=== PATIENT | female | born 1960 | race Caucasian/White ===

== ENCOUNTER → 2020-01-27 | Outpatient (CLI) | payer SELFPAY | LOC: M LABSMTC 11:12 | PROVIDERS: ATTEND Pediatrics | DX: Z20.828 Contact with and (suspected) exposure to other viral communicable diseases (principal) ==

== ENCOUNTER → 2020-02-05 | Outpatient (REF) | payer BC | LOC: M LAB REF 16:15 | PROVIDERS: ATTEND Nurse Practitioner Adult Health | DX: Z51.81 Encounter for therapeutic drug level monitoring (principal) ==

== ENCOUNTER 2020-03-28 10:39 | Emergency (ER) | payer BC ==
[~2020-03-28] VITALS: Ht 152.4 cm; Wt 68.2 kg
--- OUTSIDE RECORDS SUMMARY | 2020-03-28 10:48 | CCD | Continuity of Care Document ---
Author Author Lab Schedule Pablo Servando Organization Unknown Address [address] [place] [id number] Phone Unavailable Care Team Providers Care School Traffic Guard Name Role Phone Ronda Dupont ANP AUTM [phone] Dorene Reyes AUTO WASHER AUTM [phone] Problems Active Problems Provider Date Migraine CALDERON Gallegos Onset: 04/30/2011 Kidney stone CALDERON Gallegos Onset: 04/30/2011 Hypertensive chronic kidney disease with stage 1 through stage 4 chronic kidney disease, or unspecified chronic kidney disease CALDERON Gallegos Onset: 10/23/2016 Chronic kidney disease stage 3 CALDERON Gallegos Onset: Patient post percutaneous transluminal coronary angioplasty CALDERON Gallegos Onset: 10/23/2016 Coronary artery dissection CALDERON Gallegos Onset: 2016 Social History Type Date Description Comments Sex Unknown ETOH Use Denies alcohol use Tobacco Use Start: Unknown Patient has never smoked Allergies, Adverse Reactions, Alerts Active Allergies Reaction Severity Comments Date Sulfa rash 01/09/2010 Morphine vomiting 01/16/2015 Medications Active Medications SIG Qnty Indications Ordering Provide r Date Calcium + D3 600-200 Tablets 1 by mouth twice a day CALDERON Gallegos 12/18/2019 Irbesartan 300mg Tablets 1 by mouth every day 90tabs CALDERON Gallegos 12/18/2019 Potassium Citrate ER 15Meq (1620 mg) Tablets ER one twice daily 180tabs CALDERON Gallegos 10/17/19 20 Prolia 60mg/ml Soln Prefill Syring e inject under the skin every 6 months 1units CALDERON Gallegos 1 Aspirin 81mg Tablets 1 by mouth every day CALDERON Gallegos 01/26/2017 Propranolol HCL ER 60mg Caps ER 24 HR Take 1 Capsule By Mouth Once Daily 90caps Ronda Kinney [facility] 1 04/20/2011 Lipitor 40mg Tablets 1 by mouth every day Unknown Nitrostat 0.4mg Tablets Sub one under tongue every 5 minutes x 3 as needed for chest discomfort 30tabs Ronda Kinney [facility] Vitamin D-3 1000Unit Capsules 1 by mouth every day Unknown History Medications Urocit-K 15 15Meq (1620 mg) Tablet s ER 1 PO qd Ronda Kinney [facility] 10/17/2019 - Irbesartan 150mg Tablets 1 by mouth every day 90tabs Ronda Kinney [facility] 08/14/2019 - Medications Administered in Office Medication SIG Qnty Indications Ordering Provider Date Therapeutic Injection Injection Nurse Schedule 02/08/2020 Immunization Adminstration,1 Vaccine/Tox oid Injection Ronda Kinney [facility] 12/18/2019 Prolia (denosumab) 60mg,SC injection, ND C#[id number] Injection Ronda Kinney [facility] 07/04/2019 Therapeutic Injection Injection Ronda Kinney [facility] 07/04/2019 Immunization Adminstration,1 Vaccine/Tox oid Injection Ronda Kinney [facility] 12/07/2018 Chemotherpy Admin Subcutaneous/Im Non-Ho rmonal Anti-Neoplastic Injection Ronda Staton, [facility] 04/26/2017 Chemotherpy Admin Subcutaneous/Im Non-Ho rmonal Anti-Neoplastic Injection Ronda Staton, [facility] 08/11/2016 Immunizations CPT Code Status Date Vaccine Lot # [id number] Given 12/18/2019 Influenza Vaccin e Quadrivalent Preser/Antibiotic Free Im Use [id number] 85951 Given 12/07/2018 Influenza Vaccin e Quadrivalent Preser/Antibiotic Free Im Use [id number] 14067 Given 07/18/2015 Pneumovax 23 Q2037 Given 01/04/2014 Fluvirin Virus Vaccine 97808 01 Q2037 Given 12/01/2012 Fluvirin Virus Vaccine 56280 01 91426 Given 02/18/2012 Adacel- Tetanus Diphtheria P ertussis (Age64 & Under) 72132 Given 02/18/2012 Adacel- Tetanus Diphtheria P ertussis (Age64 & Under) Q2037 Given 11/30/2011 Fluvirin Virus Vaccine 31072 Given 09/24/2010 Adacel- Tetanus Diphtheria P ertussis (Age64 & Under) 47168 Given 01/09/2010 Influenza Virus Vaccine Vital Signs Date Vital Result Comment 12/18/2019 11:35am BP Systolic 162 mmHg BP Diastolic 80 mmHg Heart Rate 60 /min Height 60 inches 5'0" Weight 155.00 lb O2 % BldC Oximetry 98 % BMI (Body Mass Index) 30.3 kg/m2 07/04/2019 1:39pm BP Systolic 122 mmHg BP Diastolic 74 mmHg Heart Rate 82 /min Height 60 inches 5'0" Weight 159.00 lb O2 % BldC Oximetry 96 % BMI (Body Mass Index) 31.0 kg/m2 Results Test Acquired Date Facility Test Result H/L Range Note Laboratory test finding 02/05/2020 [facility] [address] [place] [address] [phone] Phosphorus Level 5.1 mg/dL High 2.5-4.9 Basic Metabolic Panel 02/05/2020 [facility] Commercial Photographer: Dr Ger [address]g [place], [place] [id number] [phone] Glucose 105 mg/dL High 74 - 99 1 BUN 20 mg/dL High 7 - 18 Creatinine 1.2 mg/dL 0.6 - 1.3 Sodium 144 mEq/L 136 - 145 Potassium 4.2 mEq/L 3.5 - 5.1 Chloride 104 mEq/L 98 - 107 Carbon Dioxide 26 mEq/L 21 - 32 Calcium 9.3 mg/dL 8.5 - 10.1 GFR 46 mL/min Low >60 GFR 56 mL/min Low >60 2 Laboratory test finding 02/05/2020 [facility] Commercial Photographer: Dr Ger Valdes [place], [place] [id number] [phone] Magnesium 2.0 mg/dL 1.8 - 2.4 Coronavirus 2018 ([facility]) 01/27/2020 [facility] [address] [place] [address] [phone] Coronavirus 2018 ([facility]) <SEE NOTE> 3 Ua Dipstick Only 12/18/2019 [facility] Commercial Photographer: [place] [address] [phone] Urine Color YELLOW Yellow Urine Appearance CLEAR Clear Urine PH 8.5 units 5.0 - 9.0 Urine Specific [place] 1.005 1.005 - 1.030 Urine Leukocytes NEGATIVE Negative Urine Blood NEGATIVE Negative Urine Protein NEGATIVE Negative -Trace Urine Glucose NEGATIVE mg/dL Negative Urine Nitrite NEGATIVE Negative Urine Ketone NEGATIVE mg/dL Negative Urine Bilirubin NEGATIVE Negative Urine Urobilinogen 0.2 mg/dL 0.2 - 1.0 Complete Blood Count 12/18/2019 [facility] [employer] Commercial Photographer: [place] [address] [phone] WBC 8.0 x10*3/UL 4.1 - 10.9 RBC 4.94 x10*6/UL 4.20 - 6.30 Hemoglobin 15.1 g/dL 12.0 - 18.0 Hematocrit 44.2 % 37.0 - 51.0 MCV 89.5 fL 80.0 - 97.0 MCH 30.6 pg 26.0 - 32.0 MCHC 34.1 g/dL 31.0 - 38.0 RDW 13.3 % 11.6 - 13.7 PLT 203 x10*3/UL 140 - 440 MPV 10.2 FL 7.8 - 11.0 Lymph % 31.8 % 10.0 - 58.5 Mid % 7.1 % 1.7 - 9.3 Neut % 61.1 % 37.0 - 92.0 Lymph # 2.5 x10*3/UL 0.6 - 4.1 Mid # 0.6 x10*3/UL 0.1 - 0.6 Neut # 4.9 x10*3/UL 2.0 - 7.8 Comprehensive Chem Profile 12/18/2019 [facility] Commercial Photographer: [place] [address] [phone] Glucose 105 mg/dL High 74 - 99 4 BUN 13 mg/dL 7 - 18 Creatinine 1.3 mg/dL 0.6 - 1.3 Sodium 142 mEq/L 136 - 145 Potassium 4.6 mEq/L 3.5 - 5.1 Chloride 102 mEq/L 98 - 107 Carbon Dioxide 30 mEq/L 21 - 32 Calcium 10.0 mg/dL 8.5 - 10.1 Alk. Phosphatase 57 mg/dL 46 - 116 Total Bilirubin 0.7 mg/dL 0.2 - 1.0 Ast (Sgot) 21 U/L 15 - 37 Alt (SGPT) 24 U/L 12 - 78 Albumin 4.2 g/dL 3.4 - 5.0 Total Protein 7.8 g/dL 6.4 - 8.2 A/G Ratio 1.17 CALC 1.00 - 1.90 GFR 42 mL/min Low >60 GFR 51 mL/min Low >60 5 Lipid Profile 12/18/2019 [facility] Commercial Photographer: [place] [address] [phone] Cholesterol 167 mg/dL 131 - 200 Triglycerides 106 mg/dL 30 - 150 HDL Cholesterol 73 mg/dL High 35 - 60 LDL (Calculated) 73 CALC 50 - 159 Laboratory test finding 12/18/2019 [facility] Commercial Photographer: Dr Ger Valdes [place], [place] [id number] [phone] Thyroid Stimulating Hormone 2.41 uIU/mL 0.3 6 - 3.74 1 100-125 mg/dL PRE-DIABET ES/FASTING >126 mg/dL DIABETES/FASTING 2 CHRONIC KIDNEY DISEASE STAGI NG PER NKF STAGE I & II GFR >= 60 NORMAL TO MILDLY DECREASED STAGE III GFR 30-59 MODERATELY DECREASED STAGE IV GFR 15-29 SEVERELY DECREASED STAGE V GFR <15 VERY LITTLE GFR LEFT ESRD GFR <15 ON TRAVEL MED SURG RN 3 Test: COVID-19 Nasal/Naspharynx Result: NOT DETECTED Reference Units: Not detected Note: Please consider re-collection of a new specimen, if clinically indicated. Note: The COVID-19 assay is under Emergency Use Authorization(EUA) by the U.S. Food and Drug Administration. [facility] is designated as a high complexity laboratory by the Clinical Laboratory Improvement Amendments of 1988(CLIA) and is qualified to perform this test. ASSAY INFORMATION: Real Time RT-PCR or TMA. 4 100-125 mg/dL PRE-DIABET ES/FASTING >126 mg/dL DIABETES/FASTING 5 CHRONIC KIDNEY DISEASE STAGI NG PER NKF STAGE I & II GFR >= 60 NORMAL TO MILDLY DECREASED STAGE III GFR 30-59 MODERATELY DECREASED STAGE IV GFR 15-29 SEVERELY DECREASED STAGE V GFR <15 VERY LITTLE GFR LEFT ESRD GFR <15 ON TRAVEL MED SURG RN Procedures Date Code Description Status 02/08/2020 89236 Therapeutic Injection Completed 04/25/2019 [id number] Mammogram Completed 03/15/2018 [id number] Mammogram Completed 02/14/2018 [id number] Bone Mineral Density Test Comple olivia 03/15/2017 [id number] Mammogram Completed 03/12/2016 [id number] Mammogram Completed 01/13/2016 [id number] Bone Mineral Density Test Comple olivia 02/12/2014 [id number] Mammogram Completed 12/19/2012 [id number] Mammogram Completed 09/14/2011 [id number] Mammogram Completed 05/31/2011 [id number] Bone Mineral Density Test Comple [facility] 12/28/2010 [id number] Colonoscopy Completed 08/25/2010 [id number] Mammogram Completed 11/06/2008 [id number] Mammogram Completed Medical Devices Description No Information Available Encounters Type Date Location Provider Dx Diagnosis Office Visit 12/18/2019 11:00a [facility] Ronda Chow Pi ne, PIANO ASSEMBLER Z00.00 Encntr for general adult medical exam w/ o abnormal findings I12.9 Hypertensive chronic kidney disease w stg 1-4/unsp chr kdny N18.31 Chronic kidney disease, stag e 3a E04.2 Nontoxic multinodular goiter M85.80 Oth disrd of bone density an d structure, unspecified site E66.09 Other obesity due to excess calories Z68.30 Body mass index [BMI]30.0-30 .9, adult Z87.442 Personal history of urinary calculi Z98.61 Coronary angioplasty status Z23 Encounter for immunization E78.00 Pure hypercholesterolemia, u nspecified Assessments Date Code Description Provider 02/05/2020 I12.9 Hypertensive chronic kidney disease with stage 1 through stage 4 chronic kidney disease, or unspecified chronic kidney disease JESSICA GallegosP 02/05/2020 I12.9 Hypertensive chronic kidney disease with stage 1 through stage 4 chronic kidney disease, or unspecified chronic kidney disease Lab Schedule 02/05/2020 N18.31 Chronic kidney disease, stage 3a Ronda Kinney [facility] 02/05/2020 N18.31 Chronic kidney disease, stage 3a Lab Schedule 02/05/2020 Z51.81 Encounter for therapeutic drug l evel monitoring Ronda Kinney [facility] 02/05/2020 Z51.81 Encounter for therapeutic drug l evel monitoring Lab Schedule 12/18/2019 Z00.00 Encounter for genera l adult medical examination without abnormal findings Ronda Kinney [facility] 12/18/2019 I12.9 Hypertensive chronic kidney disease with stage 1 through stage 4 chronic kidney disease, or unspecified chronic kidney disease JESSICA GallegosP 12/18/2019 N18.31 Chronic kidney disease, stage 3a Ronda Kinney [facility] 12/18/2019 E04.2 Nontoxic multinodular goiter Ronda Kinney [facility] 12/18/2019 M85.80 Other specified disorders of bon e density and structure, uns Ronda Kinney [facility] 12/18/2019 E66.09 Other obesity due to excess tigist leo Ronda Kinney [facility] 12/18/2019 Z68.30 Body mass index [BMI]30.0-30.9, adult Ronda Kinney [facility] 12/18/2019 Z87.442 Personal history of urinary calc tanisha Ronda Kinney [facility] 12/18/2019 Z98.61 Coronary angioplasty status CALDERON Gallegos 12/18/2019 Z23 Encounter for immunization Ronda Harris [facility] 12/18/2019 E78.00 Pure hypercholesterolemia, unspe cified CALDERON Gallegos Plan of Treatment Future Appointment(s):* 12/18/2020 10:40 am - CALDERON Gallegos at [facility] * 04/22/2020 2:20 pm - CALDERON Gallegos at [facility] 12/18/2019 - CALDERON Gallegos* Z00.00 Encounter for general adult medical examination without abnormal findings * I12.9 Hypertensive chronic kidney disease with stage 1 through stage 4 chronic kidney disease, or unspecified chronic kidney disease* Comments:* blood pressure is suboptimally controlled here and at home.Will increase Irbesartan to 300mg daily.Recheck BMP in about one month.Continue Propranolol. * Referral:* [facility], * N18.31 Chronic kidney disease, stage 3a* Comments:* BMP pending. * Referral:* [facility], * E04.2 Nontoxic multinodular goiter* Comments:* TSH pending. Will arrange f/u ultrasound of right thyroid nodule. * M85.80 Other specified disorders of bone density and structure, uns* Comments: * will continue with Prolia. Will check BMP, phosphorus and magnesium before next injection. * E66.09 Other obesity due to excess calories* Comments:* Diet and exercise discussed. She has lost 4 pounds in the interval. * Z68.30 Body mass index [BMI]30.0-30.9, adult * Z87.442 Personal history of urinary calculi* Comments:* continues on Potassium Citrate to prevent recurrence. * Z98.61 Coronary angioplasty status* Comments:* asymptomatic on Aspirin, Betablocker, statin and ARB. * Z23 Encounter for immunization * E78.00 Pure hypercholesterolemia, unspecified * All * New Medication:* Calcium + D3 600-200 - 1 by mouth twice a day * Irbesartan 300 mg - 1 by mouth every day Functional Status Description No Information Available Mental Status Description No Information Available Referrals Refer to Reason for Referral Status Appt Date [facility] CONSULT FOR [facility] HYPERTENSION Sent [address] [place] [address] [phone]
--- OUTSIDE RECORDS SUMMARY | 2020-03-28 10:48 | CCD | Continuity of Care Document ---
Author Author Nurse Pablo Lott Organization Unknown Address [address] [facility] [address] [place] [address] Phone [phone] Care Team Providers Care Import Manager Name Role Phone Ronda Dupont ANP AUTM [phone] Dorene Reeys MONEY ROOM TELLER AUTM [phone] Problems Active Problems Provider Date Migraine CALDERON [...] under the skin every 6 months 1units CADLERON Gallegos 1 Aspirin 81mg Tablets 1 by mouth every day CALDERON Gallegos 01/26/2017 Propranolol HCL ER 60mg Caps ER 24 HR Take 1 Capsule By Mouth Once Daily 90caps Ronda Kinney [facility] 1 04/20/2011 Lipitor 40mg Tablets 1 by mouth every day Unknown Nitrostat 0.4mg Tablets Sub one under tongue every 5 minutes x 3 as needed for chest discomfort 30tabs Ronda Kinney [facility] Vitamin D-3 1000Unit Capsules 1 by mouth every day Unknown History Medications Urocit-K 15 15Meq (1620 mg) Tablet s ER 1 PO qd Ronda Kinney [facility] 10/17/2019 - Irbesartan 150mg Tablets 1 by mouth every day 90tabs Ronda Kinney [facility] 08/14/2019 - Medications Administered in Office Medication SIG Qnty Indications Ordering Provider Date Prolia (denosumab) 60mg,SC injection, ND C#[id number] Injection Nurse Sched e 02/08/2020 Therapeutic Injection Injection Nurse Schedule 02/08/2020 Immunization Adminstration,1 Vaccine/Tox oid Injection Ronda Kinney [facility] 12/18/2019 Prolia (denosumab) 60mg,SC injection, ND C#[id number] Injection Ronda Kinney [facility] 07/04/2019 Therapeutic Injection Injection Ronda Kinney [facility] 07/04/2019 Immunization Adminstration,1 Vaccine/Tox oid Injection Ronda Kinney [facility] 12/07/2018 Chemotherpy Admin Subcutaneous/Im Non-Ho rmonal Anti-Neoplastic Injection Ronda Staton, [facility] 04/26/2017 Chemotherpy Admin Subcutaneous/Im Non-Ho rmonal Anti-Neoplastic Injection Ronda Staton, [facility] 08/11/2016 Immunizations CPT Code Status Date Vaccine Lot # [id number] Given 12/18/2019 Influenza Vaccin e Quadrivalent Preser/Antibiotic Free Im Use 083347 38196 Given 12/07/2018 Influenza Vaccin e Quadrivalent Preser/Antibiotic Free Im Use 204305 80749 Given 07/18/2015 Pneumovax 23 Q2037 Given 01/04/2014 Fluvirin Virus Vaccine 45210 01 Q2037 Given 12/01/2012 Fluvirin Virus Vaccine 29774 01 75499 Given 02/18/2012 Adacel- Tetanus Diphtheria P ertussis (Age64 & Under) 87131 Given 02/18/2012 Adacel- Tetanus Diphtheria P ertussis (Age64 & Under) Q2037 Given 11/30/2011 Fluvirin Virus Vaccine 75608 Given 09/24/2010 Adacel- Tetanus Diphtheria P ertussis (Age64 & Under) 79504 Given 01/09/2010 Influenza Virus Vaccine Vital Signs [...] H/L Range Note Laboratory test finding 02/05/2020 [facility] [address] [place] [id number] [phone] Phosphorus Level 5.1 mg/dL High 2.5-4.9 Basic Metabolic Panel 02/05/2020 [facility] Medical Practitioners: Dr Ger Valdes [place], [place] [id number] [phone] Glucose 105 mg/dL High 74 - 99 [...] Low >60 2 Laboratory test finding 02/05/2020 [facility] Medical Practitioners: Dr Ger Valdes [place], [place] [id number] [phone] Magnesium 2.0 mg/dL 1.8 - 2.4 Coronavirus 2019 ([facility]) 01/27/2020 [facility] [address] [place] [id number] [phone] Coronavirus 2019 ([facility]) <SEE NOTE> 3 Ua Dipstick Only 12/18/2019 [facility] Medical Practitioners: [place] [address] [phone] Urine Color YELLOW Yellow Urine Appearance CLEAR Clear Urine PH 8.5 units 5.0 - 9.0 Urine Specific [place] 1.005 1.005 - 1.030 Urine Leukocytes NEGATIVE Negative Urine Blood NEGATIVE Negative Urine Protein NEGATIVE Negative -Trace Urine Glucose NEGATIVE mg/dL Negative Urine Nitrite NEGATIVE Negative Urine Ketone NEGATIVE mg/dL Negative Urine Bilirubin NEGATIVE Negative Urine Urobilinogen 0.2 mg/dL 0.2 - 1.0 Complete Blood Count 12/18/2019 [facility] Medical Practitioners: [place] [address] [phone] WBC 8.0 x10*3/UL 4.1 - 10.9 RBC [...] 2.0 - 7.8 Comprehensive Chem Profile 12/18/2019 [facility] Medical Practitioners: [place] [address] [phone] Glucose 105 mg/dL High 74 - 99 [...] mL/min Low >60 5 Lipid Profile 12/18/2019 [facility] Medical Practitioners: [place] [address] [phone] Cholesterol 167 mg/dL 131 - 200 Triglycerides 106 mg/dL 30 - 150 HDL Cholesterol 73 mg/dL High 35 - 60 LDL (Calculated) 73 CALC 50 - 159 Laboratory test finding 12/18/2019 [facility] Medical Practitioners: [place] [address] [phone] Thyroid Stimulating Hormone 2.41 uIU/mL 0.3 6 - 3.74 1 100-125 mg/dL PRE-DIABET ES/FASTING >126 mg/dL DIABETES/FASTING 2 CHRONIC KIDNEY DISEASE STAGI NG PER NKF STAGE I & II GFR >= 60 NORMAL TO MILDLY DECREASED STAGE III GFR 30-59 MODERATELY DECREASED STAGE IV GFR 15-29 SEVERELY DECREASED STAGE V GFR <15 VERY LITTLE GFR LEFT ESRD GFR <15 ON SENIOR [employer]IS[employer] NETWORK ENGINEER 3 Test: COVID-19 Nasal/Naspharynx Result: NOT DETECTED Reference Units: Not detected Note: Please consider re-collection of a new specimen, if clinically indicated. Note: The COVID-19 assay is under Emergency Use Authorization(EUA) by the U.S. Food and Drug Administration. [facility] is designated as a high complexity laboratory [...] LITTLE GFR LEFT ESRD GFR <15 ON SENIOR [employer]IS[employer] NETWORK ENGINEER Procedures Date Code Description Status 02/08/2020 40597 Therapeutic Injection Completed 04/25/2019 [id number] Mammogram Completed 03/15/2018 [id number] Mammogram Completed 02/14/2018 [id number] Bone Mineral Density Test [facility] 03/15/2017 [id number] Mammogram Completed 03/12/2016 [id number] Mammogram Completed 01/13/2016 [id number] Bone Mineral Density Test Comple olivia 02/12/2014 [id number] Mammogram Completed 12/19/2012 [id number] Mammogram Completed 09/14/2011 [id number] Mammogram Completed 05/31/2011 [id number] Bone Mineral Density Test Comple [facility] 12/28/2010 [id number] Colonoscopy Completed 08/25/2010 [id number] Mammogram Completed 11/06/2008 [id number] Mammogram Completed Medical Devices Description No Information Available Encounters Type Date Location Provider Dx Diagnosis Office Visit 12/18/2019 11:00a [facility] Ronda Chow Pi ne, PATIENT FINANCIAL SERVICES MANAGER Z00.00 Encntr for general adult medical exam [...] u nspecified Assessments Date Code Description Provider 02/08/2020 M85.80 Other specified diso rders of bone density and structure, unspecified site Ger Valdes MD 02/08/2020 M85.80 Other specified disorders of bon e density and structure, [facility] Nurse Schedule 02/08/2020 M81.0 Age-related osteoporosis without current pathological fracture Ger Valdes MD 02/05/2020 I12.9 Hypertensive chronic kidney disease with stage 1 through stage 4 chronic kidney disease, or unspecified chronic kidney disease JESSICA GallegosP 02/05/2020 I12.9 Hypertensive chronic kidney disease with stage 1 through stage 4 chronic kidney disease, or unspecified chronic kidney disease Lab Schedule 02/05/2020 N18.31 Chronic kidney disease, stage 3a JESSICA GallegosP 02/05/2020 N18.31 Chronic kidney disease, stage 3a Lab Schedule 02/05/2020 Z51.81 Encounter for therapeutic drug l evel monitoring Ronda Kinney [facility] 02/05/2020 Z51.81 Encounter for therapeutic drug l evel monitoring Lab Schedule 12/18/2019 Z00.00 Encounter for genera l adult medical examination without abnormal findings Ronda Kinney [facility] 12/18/2019 I12.9 Hypertensive chronic kidney disease with stage 1 through stage 4 chronic kidney disease, or unspecified chronic kidney disease JESSICA GallegosP 12/18/2019 N18.31 Chronic kidney disease, stage 3a Ronda Kinney [facility] 12/18/2019 E04.2 Nontoxic multinodular goiter Ronda Kinney [facility] 12/18/2019 M85.80 Other specified disorders of bon e density and structure, [facility] JESSICA GallegosP 12/18/2019 E66.09 Other obesity due to excess tigist leo Ronda Kinney [facility] 12/18/2019 Z68.30 Body mass index [BMI]30.0-30.9, adult JESSICA GallegosP 12/18/2019 Z87.442 Personal history of urinary calc tanisha JESSICA GallegosP 12/18/2019 Z98.61 Coronary angioplasty status CALDERON Gallegos 12/18/2019 Z23 Encounter for immunization CALDERON Magallanes 12/18/2019 E78.00 Pure hypercholesterolemia, unspe cified CALDERON Gallegos Plan of Treatment Future Appointment(s):* 12/18/2020 10:40 am - CALDERON Gallegos at [facility] * 04/22/2020 2:20 pm - CALDERON Gallegos at [facility] 12/18/2019 - CALDERON Gallegos* Z00.00 Encounter for general adult medical examination without abnormal findings * I12.9 Hypertensive chronic kidney disease with stage 1 through stage 4 chronic kidney disease, or unspecified chronic kidney disease* Comments:* blood pressure is suboptimally controlled here and at home.Will increase Irbesartan to 300mg daily.Recheck BMP in about one month.Continue Propranolol. * Referral:* [facility], * N18.31 Chronic kidney disease, stage 3a* Comments:* BMP pending. * Referral:* [facility], * E04.2 Nontoxic multinodular goiter* Comments:* [...] Status Appt Date [facility] CONSULT FOR PBX TEACHER [place] KIDNEY DISEASE AND HYPERTENSION Sent [address] [place] [address] [phone]
--- OUTSIDE RECORDS SUMMARY | 2020-03-28 10:49 | CCD ---
Author Author [facility] Organization [facility] Address Unknown Phone Unavailable Care Team Providers Care Occupational Therapist Rehab Manager Name Role Phone Demario LOPEZ MD Unavailable Unavailable Demario LOPEZ MD Unavailable Unavailable Demario LOPEZ MD Unavailable Unavailable Demario LOPEZ MD Unavailable Unavailable Demario LOPEZ MD Unavailable Unavailable Demario LOPEZ MD Unavailable Unavailable Demario LOPEZ MD Unavailable Unavailable Demario LOPEZ MD Unavailable Unavailable Demario LOPEZ MD Unavailable Unavailable Demario LOPEZ MD Unavailable Unavailable Demario LOPEZ MD Unavailable Unavailable Demario LOPEZ MD Unavailable Unavailable Demario LOPEZ MD Unavailable Unavailable Demario LOPEZ MD Unavailable Unavailable Demario LOPEZ MD Unavailable Unavailable Demario LOPEZ MD Unavailable Unavailable Demario LOPEZ MD Unavailable Unavailable Demario LOPEZ MD Unavailable Unavailable Demario LOPEZ MD Unavailable Unavailable Demario LOPEZ MD Unavailable Unavailable Demario LOPEZ MD Unavailable Unavailable Demario LOPEZ MD Unavailable Unavailable Demario LOPEZ MD Unavailable Unavailable Demario LOPEZ MD Unavailable Unavailable Demario LOPEZ MD Unavailable Unavailable Demario LOPEZ MD Unavailable Unavailable Demario LOPEZ MD Unavailable Unavailable Demario LOPEZ MD Unavailable Unavailable Demario LOPEZ MD Unavailable Unavailable Demario LOPEZ MD Unavailable Unavailable Demario LOPEZ MD Unavailable Unavailable Demario LOPEZ MD Unavailable Unavailable Demario LOPEZ MD Unavailable Unavailable Demario LOPEZ MD Unavailable Unavailable Demario LOPEZ MD Unavailable Unavailable Demario LOPEZ MD Unavailable Unavailable Demario LOPEZ MD Unavailable Unavailable Demario LOPEZ MD Unavailable Unavailable Demario LOPEZ MD Unavailable Unavailable Demario LOPEZ MD Unavailable Unavailable Demario LOPEZ MD Unavailable Unavailable Demario LOPEZ MD Unavailable Unavailable Demario LOPEZ MD Unavailable Unavailable Demario LOPEZ MD Unavailable Unavailable Demario LOPEZ MD Unavailable Unavailable Demario LOPEZ MD Unavailable Unavailable Demario LOPEZ MD Unavailable Unavailable Demario LOPEZ MD Unavailable Unavailable Demario LOPEZ MD Unavailable Unavailable Demario LOPEZ MD Unavailable Unavailable Demario LOPEZ MD Unavailable Unavailable Demario LOPEZ MD Unavailable Unavailable Demario LOPEZ MD Unavailable Unavailable Demario LOPEZ MD Unavailable Unavailable Demario LOPEZ MD Unavailable Unavailable Demario LOPEZ MD Unavailable Unavailable Demario LOPEZ MD Unavailable Unavailable Demario LOPEZ MD Unavailable Unavailable Demario LOPEZ MD Unavailable Unavailable Demario LOPEZ MD Unavailable Unavailable Demario LOPEZ MD Unavailable Unavailable Demario LOPEZ MD Unavailable Unavailable Demario LOPEZ MD Unavailable Unavailable Demario LOPEZ MD Unavailable Unavailable Demario LOEPZ MD Unavailable Unavailable Demario LOPEZ MD Unavailable Unavailable Demario LOPEZ MD Unavailable Unavailable Demario LOPEZ MD Unavailable Unavailable Demario LOPEZ MD Unavailable Unavailable Demario LOPEZ MD Unavailable Unavailable Demario LOPEZ MD Unavailable Unavailable Demario LOPEZ MD Unavailable Unavailable Demario LOPEZ MD Unavailable Unavailable Demario LOPEZ MD Unavailable Unavailable Demario LOPEZ MD Unavailable Unavailable LePine, M Nancy WAREHOUSE INSULATION WORKER Unavailable Unavailable LePine, M Nancy WAREHOUSE INSULATION WORKER Unavailable Unavailable LePine, M Nancy WAREHOUSE INSULATION WORKER Unavailable Unavailable LePine, M Nancy WAREHOUSE INSULATION WORKER Unavailable Unavailable LePine, M Nancy WAREHOUSE INSULATION WORKER Unavailable Unavailable LePine, M Nancy WAREHOUSE INSULATION WORKER Unavailable Unavailable LePine, M Nancy WAREHOUSE INSULATION WORKER Unavailable Unavailable LePine, M Nancy WAREHOUSE INSULATION WORKER Unavailable Unavailable LePine, M Nancy WAREHOUSE INSULATION WORKER Unavailable Unavailable LePine, M Nancy WAREHOUSE INSULATION WORKER Unavailable Unavailable LePine, M Nancy WAREHOUSE INSULATION WORKER Unavailable Unavailable LePine, M Nancy WAREHOUSE INSULATION WORKER Unavailable Unavailable LePine, M Nancy WAREHOUSE INSULATION WORKER Unavailable Unavailable LePine, M Nancy WAREHOUSE INSULATION WORKER Unavailable Unavailable LePine, M Nancy WAREHOUSE INSULATION WORKER Unavailable Unavailable LePine, M Nancy WAREHOUSE INSULATION WORKER Unavailable Unavailable LePine, M Nancy WAREHOUSE INSULATION WORKER Unavailable Unavailable LePine, M Nancy WAREHOUSE INSULATION WORKER Unavailable Unavailable LePine, M Nancy WAREHOUSE INSULATION WORKER Unavailable Unavailable LePine, M Nancy WAREHOUSE INSULATION WORKER Unavailable Unavailable LePine, M Nancy WAREHOUSE INSULATION WORKER Unavailable Unavailable LePine, M Nancy WAREHOUSE INSULATION WORKER Unavailable Unavailable LePine, M Nancy WAREHOUSE INSULATION WORKER Unavailable Unavailable LePine, M Nancy WAREHOUSE INSULATION WORKER Unavailable Unavailable LePine, M Nancy WAREHOUSE INSULATION WORKER Unavailable Unavailable LePine, M Nancy WAREHOUSE INSULATION WORKER Unavailable Unavailable LePine, M Nancy WAREHOUSE INSULATION WORKER Unavailable Unavailable LePine, M Nancy WAREHOUSE INSULATION WORKER Unavailable Unavailable LePine, M Nancy WAREHOUSE INSULATION WORKER Unavailable Unavailable LePine, M Nancy WAREHOUSE INSULATION WORKER Unavailable Unavailable LePine, M Nancy WAREHOUSE INSULATION WORKER Unavailable Unavailable LePine, M Nancy WAREHOUSE INSULATION WORKER Unavailable Unavailable LePine, M Nancy WAREHOUSE INSULATION WORKER Unavailable Unavailable LePine, M Nancy WAREHOUSE INSULATION WORKER Unavailable Unavailable LePine, M Nancy WAREHOUSE INSULATION WORKER Unavailable Unavailable LePine, M Nancy WAREHOUSE INSULATION WORKER Unavailable Unavailable LePine, M Nancy WAREHOUSE INSULATION WORKER Unavailable Unavailable LePine, M Nancy WAREHOUSE INSULATION WORKER Unavailable Unavailable LePine, M Nancy WAREHOUSE INSULATION WORKER Unavailable Unavailable LePine, M Nancy WAREHOUSE INSULATION WORKER Unavailable Unavailable LePine, M Nancy WAREHOUSE INSULATION WORKER Unavailable Unavailable LePine, M Nancy WAREHOUSE INSULATION WORKER Unavailable Unavailable LePine, M Nancy WAREHOUSE INSULATION WORKER Unavailable Unavailable LePine, M Nancy WAREHOUSE INSULATION WORKER Unavailable Unavailable LePine, M Nancy WAREHOUSE INSULATION WORKER Unavailable Unavailable LePine, M Nancy WAREHOUSE INSULATION WORKER Unavailable Unavailable LePine, M Nancy WAREHOUSE INSULATION WORKER Unavailable Unavailable LePine, M Nancy WAREHOUSE INSULATION WORKER Unavailable Unavailable LePine, M Nancy WAREHOUSE INSULATION WORKER Unavailable Unavailable LePine, M Nancy WAREHOUSE INSULATION WORKER Unavailable Unavailable LePine, M Nancy WAREHOUSE INSULATION WORKER Unavailable Unavailable LePine, M Nancy WAREHOUSE INSULATION WORKER Unavailable Unavailable LePine, M Nancy WAREHOUSE INSULATION WORKER Unavailable Unavailable LePine, M Nancy WAREHOUSE INSULATION WORKER Unavailable Unavailable LePine, M Nancy WAREHOUSE INSULATION WORKER Unavailable Unavailable JUDAH PARISI MD Unavailable Unavailable JUDAH PARISI MD Unavailable Unavailable JUDAH PARISI MD Unavailable Unavailable JUDAH PARISI MD Unavailable Unavailable JUDAH PARISI MD Unavailable Unavailable JUDAH PARISI MD Unavailable Unavailable JUDAH PARISI MD Unavailable Unavailable JUDAH PARISI MD Unavailable Unavailable JUDAH PARISI MD Unavailable Unavailable JUDAH PARISI MD Unavailable Unavailable JUDAH PARISI MD Unavailable Unavailable JUDAH PARISI MD Unavailable Unavailable JUDAH PARISI MD Unavailable Unavailable JUDAH PARISI MD Unavailable Unavailable JUDAH PARISI MD Unavailable Unavailable JUDAH PARISI MD Unavailable Unavailable JUDAH PARISI MD Unavailable Unavailable JUDAH PARISI MD Unavailable Unavailable JUDAH PARISI MD Unavailable Unavailable JUDAH PARISI MD Unavailable Unavailable PARISI, JUDAH MD Unavailable Unavailable PARISI, JUDAH MD Unavailable Unavailable PARISI, JUDAH MD Unavailable Unavailable PARISI, JUDAH MD Unavailable Unavailable PARISI, JUDAH MD Unavailable Unavailable PARISI, JUDAH MD Unavailable Unavailable PARISI, JUDAH MD Unavailable Unavailable PARISI, JUDAH MD Unavailable Unavailable PARISI, JUDAH MD Unavailable Unavailable PARISI, JUDAH MD Unavailable Unavailable PARISI, JUDAH MD Unavailable Unavailable PARISI, JUDAH MD Unavailable Unavailable PARISI, JUDAH MD Unavailable Unavailable PARISI, JUDAH MD Unavailable Unavailable PARISI, JUDAH MD Unavailable Unavailable PARISI, JUDAH MD Unavailable Unavailable PARISI, JUDAH MD Unavailable Unavailable PARISI, JUDAH MD Unavailable Unavailable PARISI, JUDAH MD Unavailable Unavailable PARISI, JUDAH MD Unavailable Unavailable PARISI, JUDAH MD Unavailable Unavailable PARISI, JUDAH MD Unavailable Unavailable PARISI, JUDAH MD Unavailable Unavailable PARISI, JUDAH MD Unavailable Unavailable PARISI, JUDAH MD Unavailable Unavailable PARISI, JUDAH MD Unavailable Unavailable PARISI, JUDAH MD Unavailable Unavailable PARISI, JUDAH MD Unavailable Unavailable PARISI, JUDAH MD Unavailable Unavailable PARISI, JUDAH MD Unavailable Unavailable PARISI, JUDAH MD Unavailable Unavailable PARISI, JUDAH MD Unavailable Unavailable PARISI, JUDAH MD Unavailable Unavailable PARISI, JUDAH MD Unavailable Unavailable PARISI, JUDAH MD Unavailable Unavailable PARISI, JUDAH MD Unavailable Unavailable PARISI, JUDAH MD Unavailable Unavailable PARISI, JUDAH MD Unavailable Unavailable PARISI, JUDAH MD Unavailable Unavailable PARISI, JUDAH MD Unavailable Unavailable PARISI, JUDAH MD Unavailable Unavailable PARISI, JUDAH MD Unavailable Unavailable PARISI, JUDAH MD Unavailable Unavailable PARISI, JUDAH MD Unavailable Unavailable PARISI, JUDAH MD Unavailable Unavailable PARISI, JUDAH MD Unavailable Unavailable PARISI, JUDAH MD Unavailable Unavailable PARISI, JUDAH MD Unavailable Unavailable PARISI, JUDAH MD Unavailable Unavailable PARISI, JUDAH MD Unavailable Unavailable PARISI, JUDAH MD Unavailable Unavailable PARISI, JUDAH MD Unavailable Unavailable PARISI, JUDAH MD Unavailable Unavailable PARISI, JUDAH MD Unavailable Unavailable PARISI, JUDAH MD Unavailable Unavailable PARISI, JUDAH MD Unavailable Unavailable PARISI, JUDAH MD Unavailable Unavailable PARISI, JUDAH MD Unavailable Unavailable PARISI, JUDAH MD Unavailable Unavailable PARISI, JUDAH MD Unavailable Unavailable PARISI, JUDAH MD Unavailable Unavailable PARISI, JUDAH MD Unavailable Unavailable PARISI, JUDAH MD Unavailable Unavailable PARISI, JUDAH MD Unavailable Unavailable PARISI, JUDAH MD Unavailable Unavailable PARISI, JUDAH MD Unavailable Unavailable PARISI, JUDAH MD Unavailable Unavailable PARISI, JUDAH MD Unavailable Unavailable PARISI, JUDAH MD Unavailable Unavailable PARISI, JUDAH MD Unavailable Unavailable PARISI, JUDAH MD Unavailable Unavailable PARISI, JUDAH MD Unavailable Unavailable PARISI, JUDAH MD Unavailable Unavailable PARISI, JUDAH MD Unavailable Unavailable PARISI, JUDAH MD Unavailable Unavailable PARISI, JUDAH MD Unavailable Unavailable PARISI, JUDAH MD Unavailable Unavailable PARISI, JUDAH MD Unavailable Unavailable PARISI, JUDAH MD Unavailable Unavailable PARISI, JUDAH MD Unavailable Unavailable Re-disclosure Warning The records that you are about to access may contain information from federally-assisted alcohol or drug abuse programs. If such information is present, then the following federally mandated warning applies: This information has been disclosed to you from records protected by federal confidentiality rules (42 CFR part 2). The federal rules prohibit you from making any further disclosure of this information unless further disclosure is expressly permitted by the written consent of the person to whom it pertains or as otherwise permitted by 42 CFR part 2. A general authorization for the release of medical or other information is NOT sufficient for this purpose. The Federal rules restrict any use of the information to criminally investigate or prosecute any alcohol or drug abuse patient.The records that you are about to access may contain highly sensitive health information, the redisclosure of which is protected by Article 27-F of the [facility] Public Health law. If you continue you may have access to information: Regarding HIV / AIDS; Provided by facilities licensed or operated by the [facility] Office of Mental Health; or Provided by the [facility] Office for People With Developmental Disabilities. If such information is present, then the following [facility] mandated warning applies: This information has been disclosed to you from confidential records which are protected by state law. State law prohibits you from making any further disclosure of this information without the specific written consent of the person to whom it pertains, or as otherwise permitted by law. Any unauthorized further disclosure in violation of state law may result in a fine or prison sentence or both. A general authorization for the release of medical or other information is NOT sufficient authorization for further disc losure. Family History Family Member Name Family Member Gender Family Member Status Date o f Status Description Data Source(s) Unknown Unknown Problem [facility] ([facility]) FATHER AGE 50. Prostate cancer. Unknown Male Problem [facility] ([facility] Unknown Unknown Problem [facility] ([facility]) Unknown Unknown Problem [facility] ([facility]) Unknown Unknown Problem [facility] ([facility]) Unknown Unknown Problem [facility] ([facility]) Unknown Unknown Problem [facility] ([facility]) Encounters Encounter Providers Location Date Indications Data Source(s ) Outpatient Attender: ELISA MCNALLYBF 02/11/2020 12:00:00 AM EST [facility] Outpatient Attender: Nancy Raines 12/17 11:00:00 AM EDT [facility] ([facility] ) Outpatient Attender: ELISA LOPEZ MD BF-BF 08/03/2019 07:47:18 AM EDT [facility] Outpatient Attender: Nancy Raines 07/03 01:40:00 PM EDT [facility] ([facility] ) Outpatient Attender: JUDAH PARISI MD 04/04/2019 01:02:00 PM EST [facility] Outpatient Attender: Nancy Raines 03/16 12:00:00 PM EST [facility] ([facility] ) Immunizations Vaccine Date Status Description Data Source(s) Influenza, injectable, MDCK, preservative free, jonatan valent 12/18/2019 11:37:00 AM EDT completed [facility] ([facility]) Medications Medication Brand Name Start Date Product Form Dose Route Admi nistrative Instructions Pharmacy Instructions Status Indications Reaction Description Data Source(s) 25 mg 02/28/2020 12:00:00 AM EST tablet 90 TAKE ONE TABLET BY MOUTH EVERY DAY TAKE ONE TABLET BY MOUTH EVERY DAY SOLD: 03/01/2020 [facility] Prolia (denosumab) 60mg,SC injection, [facility]#[id number] 02/08/2020 12:00:00 AM EST completed [facility] ([facility]) Medication administered onsite Therapeutic Injection 02/08/2020 12:00:00 AM EST completed [facility] ([facility]) Medication administered onsite irbesartan 300 MG Oral Tablet irbesartan (AVAPRO) 300 MG tablet irbesartan (AVAPRO) 300 MG tablet 12/19/2019 12:00:00 AM EDT 300 mg Oral active Take 300 mg by mouth daily [facility] 300 mg 12/19/2019 12:00:00 AM EDT tablet 90 TAKE ONE TABLET BY MOUTH EVERY DAY TAKE ONE TABLET BY MOUTH EVERY DAY SOLD: 12/20/2019 [facility] 300 mg 12/19/2019 12:00:00 AM EDT tablet 90 TAKE ONE TABLET BY MOUTH EVERY DAY TAKE ONE TABLET BY MOUTH EVERY DAY SOLD: 03/20/2020 [facility] irbesartan 300 MG Oral Tablet Irbesartan 12/18/2019 12:00:00 AM EDT ORAL active [facility] ([facility]) Immunization Adminstration,1 Vaccine/Toxoid 12/18/2019 12:00 :00 AM EDT completed [facility] ([facility]) Medication administered onsite Calcium Carbonate 1500 MG / Cholecalciferol 200 UNT Oral Tab let Calcium + D3 12/18/2019 12:00:00 AM EDT ORAL active [facility] ([facility]) 15 mEq 10/18/2019 12:00:00 AM EDT tablet extended release 60 TAKE ONE TABLET BY MOUTH TWICE A DAY TAKE ONE TABLET BY MOUTH TWICE A DAY SOLD: 02/13/2020 [facility] 15 mEq 10/18/2019 12:00:00 AM EDT tablet extended release 60 TAKE ONE TABLET BY MOUTH TWICE A DAY TAKE ONE TABLET BY MOUTH TWICE A DAY SOLD: 11/18/2019 [facility] 15 mEq 10/18/2019 12:00:00 AM EDT tablet extended release 60 TAKE ONE TABLET BY MOUTH TWICE A DAY TAKE ONE TABLET BY MOUTH TWICE A DAY SOLD: 01/13/2020 [facility] 15 mEq 10/18/2019 12:00:00 AM EDT tablet extended release 60 TAKE ONE TABLET BY MOUTH TWICE A DAY TAKE ONE TABLET BY MOUTH TWICE A DAY SOLD: 10/18/2019 [facility] 60 mg 10/18/2019 12:00:00 AM EDT capsule,extended releas e 24 hr 90 TAKE 1 CAPSULE BY MOUTH ONCE DAILY TAKE 1 CAPSULE BY MOUTH ONCE DAILY SOLD: 01/21/2020 [facility] 60 mg 10/18/2019 12:00:00 AM EDT capsule,extended releas e 24 hr 90 TAKE 1 CAPSULE BY MOUTH ONCE DAILY TAKE 1 CAPSULE BY MOUTH ONCE DAILY SOLD: 10/18/2019 [facility] 15 mEq 10/18/2019 12:00:00 AM EDT tablet extended release 60 TAKE ONE TABLET BY MOUTH TWICE A DAY TAKE ONE TABLET BY MOUTH TWICE A DAY SOLD: 12/18/2019 [facility] 15 mEq 10/18/2019 12:00:00 AM EDT tablet extended release 60 TAKE ONE TABLET BY MOUTH TWICE A DAY TAKE ONE TABLET BY MOUTH TWICE A DAY SOLD: 03/16/2020 [facility] potassium citrate 15 MEQ Extended Release Oral Tablet Potass ium Citrate ER 10/17/2019 12:00:00 AM EDT active [facility] ([facility]) potassium citrate 15 MEQ Extended Release Oral Tablet [Uroci t-K] Urocit-K 15 10/17/2019 12:00:00 AM EDT ORAL completed [facility] ([facility]) 150 mg 08/22/2019 12:00:00 AM EDT tablet 90 TAKE ONE TABLET BY MOUTH EVERY DAY TAKE ONE TABLET BY MOUTH EVERY DAY SOLD: 11/11/2019 [facility] 150 mg 08/22/2019 12:00:00 AM EDT tablet 90 TAKE ONE TABLET BY MOUTH EVERY DAY TAKE ONE TABLET BY MOUTH EVERY DAY SOLD: 08/24/2019 [facility] irbesartan 150 MG Oral Tablet Irbesartan 08/14/2019 12:00:00 AM EDT ORAL completed [facility] ([facility]) valsartan 80 MG Oral Tablet Valsartan 08/09/2019 12:00:00 AM EDT ORAL completed [facility] ([facility]) 40 mg 08/06/2019 12:00:00 AM EDT tablet 90 TAKE ONE TABLET BY MOUTH EVERY DAY TAKE ONE TABLET BY MOUTH EVERY DAY SOLD: 08/08/2019 [facility] atorvastatin 40 MG Oral Tablet ATORVASTATIN CALCIUM 08/06/2019 1 2:00:00 AM EDT tablet 90 TAKE ONE TABLET BY MOUTH EVERY D AY TAKE ONE TABLET BY MOUTH EVERY DAY SOLD: 11/08/2019 [facility] atorvastatin 40 MG Oral Tablet atorvastatin (LIPITOR) 40 MG tablet atorvastatin (LIPITOR) 40 MG tablet 08/06/2019 12:00:00 AM EDT 40 mg Oral active Take 1 tablet (40 mg total) by mouth daily [facility] atorvastatin 40 MG Oral Tablet ATORVASTATIN CALCIUM 08/06/2019 1 2:00:00 AM EDT tablet 90 TAKE ONE TABLET BY MOUTH EVERY D AY TAKE ONE TABLET BY MOUTH EVERY DAY SOLD: 02/06/2020 [facility] 24 HR Propranolol Hydrochloride 60 MG Ex tended Release Oral Capsule propranolol (INDERAL LA) 60 MG 24 hr capsule propranolol (INDERAL LA) 60 MG 24 hr capsule 08/03/2019 12:00:00 AM EDT 60 mg Oral active Take 1 capsule (60 mg total) by mouth nightly [facility] 60 mg 08/03/2019 12:00:00 AM EDT capsule,extended releas e 24 hr 90 TAKE ONE CAPSULE BY MOUTH EVERY EVENING TAKE ONE CAPSULE BY MOUTH EVERY EVENING SOLD: 08/08/2019 [facility] 80-12.5 mg 07/05/2019 12:00:00 AM EDT tablet 90 TAKE ONE TABLET BY MOUTH EVERY DAY WITH DINNER TAKE ONE TABLET BY MOUTH EVERY DAY WITH DINNER SOLD: 07/09/2019 [facility] Therapeutic Injection 07/04/2019 12:00:00 AM EDT completed [facility] ([facility]) Medication administered onsite Prolia (denosumab) 60mg,SC injection, [facility]#[id number] 07/04/2019 12:00:00 AM EDT completed [facility] ([facility]) Medication administered onsite 80-12.5 mg 04/19/2019 12:00:00 AM EST tablet 90 TAKE ONE TABLET BY MOUTH EVERY DAY TAKE ONE TABLET BY MOUTH EVERY DAY SOLD: 04/20/2019 [facility] 15 mEq 04/05/2019 12:00:00 AM EST tablet extended release 60 TAKE ONE TABLET BY MOUTH TWICE A DAY TAKE ONE TABLET BY MOUTH TWICE A DAY SOLD: 04/09/2019 [facility] 15 mEq 04/05/2019 12:00:00 AM EST tablet extended release 60 TAKE ONE TABLET BY MOUTH TWICE A DAY TAKE ONE TABLET BY MOUTH TWICE A DAY SOLD: 09/10/2019 [facility] 15 mEq 04/05/2019 12:00:00 AM EST tablet extended release 60 TAKE ONE TABLET BY MOUTH TWICE A DAY TAKE ONE TABLET BY MOUTH TWICE A DAY SOLD: 08/08/2019 [facility] 15 mEq 04/05/2019 12:00:00 AM EST tablet extended release 60 TAKE ONE TABLET BY MOUTH TWICE A DAY TAKE ONE TABLET BY MOUTH TWICE A DAY SOLD: 06/06/2019 [facility] 15 mEq 04/05/2019 12:00:00 AM EST tablet extended release 60 TAKE ONE TABLET BY MOUTH TWICE A DAY TAKE ONE TABLET BY MOUTH TWICE A DAY SOLD: 07/09/2019 [facility] 15 mEq 04/05/2019 12:00:00 AM EST tablet extended release 60 TAKE ONE TABLET BY MOUTH TWICE A DAY TAKE ONE TABLET BY MOUTH TWICE A DAY SOLD: 05/08/2019 [facility] 15 mEq 03/13/2019 12:00:00 AM EST tablet extended release 60 TAKE ONE TABLET BY MOUTH TWICE A DAY TAKE ONE TABLET BY MOUTH TWICE A DAY SOLD: 03/16/2019 [facility] 80-12.5 mg 03/13/2019 12:00:00 AM EST tablet 30 TAKE ONE TABLET BY MOUTH EVERY DAY TAKE ONE TABLET BY MOUTH EVERY DAY SOLD: 03/16/2019 [facility] 60 mg 01/13/2019 12:00:00 AM EST capsule,extended releas e 24 hr 90 TAKE 1 CAPSULE BY MOUTH ONCE DAILY TAKE 1 CAPSULE BY MOUTH ONCE DAILY SOLD: 04/18/2019 [facility] 60 mg 01/13/2019 12:00:00 AM EST capsule,extended releas e 24 hr 90 TAKE 1 CAPSULE BY MOUTH ONCE DAILY TAKE 1 CAPSULE BY MOUTH ONCE DAILY SOLD: 07/22/2019 [facility] 40 mg 08/18/2018 12:00:00 AM EDT tablet 90 TAKE ONE TABLET BY MOUTH EVERY DAY TAKE ONE TABLET BY MOUTH EVERY DAY SOLD: 05/10/2019 [facility] 40 mg 08/18/2018 12:00:00 AM EDT tablet 90 TAKE ONE TABLET BY MOUTH EVERY DAY TAKE ONE TABLET BY MOUTH EVERY DAY SOLD: 02/15/2019 [facility] 15 mEq 06/14/2018 12:00:00 AM EDT tablet extended release 60 TAKE ONE TABLET BY MOUTH TWICE A DAY TAKE ONE TABLET BY MOUTH TWICE A DAY SOLD: 02/15/2019 [facility] Hydrochlorothiazide 12.5 MG / valsartan 80 MG Oral Tablet valsartan- hydrochlorothiazide (DIOVAN-HCT) 80-12.5 MG per tablet valsartan- hydrochlorothiazide (DIOVAN-HCT) 80-12.5 MG per tablet 1 {tb l} Oral aborted Take 1 tablet by mouth daily [facility] Insurance Providers Payer name Policy type / Coverage type Policy ID Covered republican ID Covered republican's relationship to appiah Policy Appiah Plan Information BCBS LILIANA ANTHONY PPO [phone] [id number] EXCELLUS BCBS EXCELLUS BCBS [id number] Spo CEP [id number] SELF PAY ONLY [id number] SP 105 [id number] EXCELLUS BCBS B [id number] P CEP [id number] SELF PAY BLUE CROSS [id number] SPO [id number] Lifetime Benefit MGD Care Medigap Part B [id number] Family Dependent [id number] BCBS CN[place] Medigap Part B [id number] Family Dependent [id number] BCBS Bluecard Commercial Commercial [id number] Family Dependent [id number] [employer] Managed Care Medigap Part B [id number] Family Dependent [id number] Lifetime Benefit ([employer]) Commercial [id number] Self [id number] BS Anjelica Trad/MX Commercial [id number] Family Dependen t [id number] Lifetime Benefit ([employer]) Commercial [id number] Family Depende nt [id number] EBSRMSCO LIFETIME BENEFIT SOLU [id number] Spo [id number] LIFETIME BENEFIT SOLUTIO O [id number] O [id number] Lifetime Benefit MGD Care Commercial [id number] Family Dep endent [id number] Lifetime Benefit ([employer]) Commercial [id number] Self [id number] Lifetime Benefit ([employer]) Commercial Pos Family Depende nt Pos Lifetime Benefit ([employer]) Commercial Self LIFETIME BENEFIT SOLUTIONS [id number] SP [id number] EBSRMSCO LIFETIME BENEFIT SOLU [id number] Spo [id number] EBSRMSCO LIFETIME BENEFIT SOLU [id number] Spo [id number] SELF PAY UNAVAILABLE SP UNAVAILA BLE EBS RMSCO [id number] Spo [id number] Lifetime Benefit Solution Commercial Self LIFETIME BENEFIT SOLUTIONS U [id number] Self [id number] EBS RMSCO [id number] Spo [id number] [employer] MEDICAL CLAIMS [id number] [id number] RMSCO P [id number] P [id number] P [id number] Problems, Conditions, and Diagnoses Code Display Name Description Problem Type Effective Dates Data Source(s) N20.0 Calculus of kidney N20.0 - Calculus of kidney Diagnosi s 04/04/2019 01:02:00 PM EST [facility] Surgeries/Procedures Procedure Description Date Indications Data Source(s) THERAPEUTIC PROPHYLACTIC/DX INJECTION SUBQ/IM 02/08/20 12:00:00 AM EST [facility] ([facility]) THERAPEUTIC PROPHYLACTIC/DX INJECTION SUBQ/IM 07/04/19 12:00:00 AM EDT [facility] ([facility]) Mammogram 04/25/2019 12:00:00 AM EST [facility] ([facility]) Results ID Date Data Source [id number] 02/11/2020 03:33:13 PM EST [facility] ClinicPATIE NT INFORMATIONPatient MRN Name Date of Age Gend*PT [id number] Carmen Sal 1960 59 years F ---PT Location Admission Date/Time Visit ID Attending Provider --- --- --- --- EPI ID CSN Admitting Provider [id number] ---Cardiology History and PhysicalName: Carmen Sal Gender: femaleDate of : 1960 Age: 59 yearsPrimary Care Provider / Referring Physician: NANCY BUNCH, NPCardiology Telemedicine VisitPatient was identified by name and date of .Verbal consent was obtained from the patient for this telemedicine visit.Patient is aware of the risks, limitations, and benefits of a telemedicinevisit.This telemedicine assessment was conducted remotely with the assistance ofelectronAzuquaommunication technology: Telephone Only Codes 32188: 21- 30 minutes of medicaldiscussion: Telephone OnlyCurrent HistoryChief Complaint: This is a Telemedicine visitHPI:This patient is a 59 years female with the following updated problem list:1. 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 She then suffered proximal LADdissection and underwent a 2nd procedure later in the year in 2014. In 2016 shesuffered current disease between the 2 stents in the right coronary artery andunderwent a stent procedure at that time. She had no subsequent anginalsymptoms and has had negative catheterization since then.2. Moderate to severe mitral regurgitation by echo: This was something that shehad known about previously however stress echo in 2019 failed to show anyischemia and no MR3. Essential hypertension4. Previous history of a pulmonary embolism5. Kidney stones6. Stress echocardiogram 2018 was negative for ischemiaThis is a follow-up examinationReview of Systems General Denies dizziness or lightheadedness. Denies any recent, unexpectedweight changes. HEENT Denies any loss or change of vision. Denies tinnitus. Respiratory Denies PND, orthopnea, LEE, hemoptysis, cough, or shortness ofbreath. Cardiac Denies chest pain or pressure, denies palpitations GI Denies melena, hematochezia, nausea, or vomiting. MS Denies any lower extremity edema. Neuro Denies speech, motor, or sensory impairment. Psych Denies depression or anxiety. Endo Denies polyuria or polydipsia, denies temperature intolerance. Derm Denies diaphoresis, non-healing skin woundsPast HistoryPast Medical History:Diagnosis Date Chronic migraine Coronary artery dissection 09/2014 right and left coronary s/p JAY Essential hypertension controlled with one medication History of pulmonary embolism Moderate mitral regurgitation 10/2014 echo Multiple thyroid nodules 04/08/2017 Myocardial infarction x 4 last in 04/15Pa Surgical History:Procedure Laterality Date SECTION x 3 COLONOSCOPY CORONARY ANGIOPLASTY WITH STENT PLACEMENT 09/2014 [facility] cardiology Dr. Connolly and saw EP Dr. Carlos 7 stents placed with 5procedures EXTRACORPOREAL SHOCK WAVE LITHOTRIPSY OVARIAN CYST REMOVAL URETERAL STENT PLACEMENT twice in past none recent UTERINE ABLATIONFamily HistoryProblem Relation Age of Onset Heart attack Father 50 however never had intervention and still alive at this point Heart disease Father Hypertension Father Prostate cancer Father Coronary artery disease Mother 70 heart surgery Diabetes Mother Heart disease Mother Healthy, No Significant History Sister Healthy, No Significant History Brother Healthy, No Significant History Daughter Healthy, No Significant History Son Heart disease Maternal Uncle Lung cancer Paternal Aunt Prostate cancer Paternal Uncle Colon cancer Maternal Grandmother Leukemia Maternal Grandfather Breast cancer Paternal Grandmother Heart disease Paternal Grandfather Healthy, No Significant History Sister Healthy, No Significant History Daughter Healthy, No Significant History Maternal Uncle Alcohol abuse Paternal Uncle Thyroid disease Paternal UncleSocial HistorySocioeconomic History Marital status: Spouse name: Not on file Number of children: 3 Years of education: Not on file Highest education level: Not on fileOccupational History Not on fileSocial Needs Financial resource strain: Not on file Food insecurity: Worry: Not on file Inability: Not on file Transportation needs: Medical: Not on file Non-medical: Not on fileTobacco Use Smoking status: Never Smoker Smokeless tobacco: Never UsedSubstance and Sexual Activity Alcohol use: No Drug use: No Sexual activity: Not on fileLifestyle Physical activity: Days per week: Not on file Minutes per session: Not on file Stress: Not on fileRelationships Social connections: Talks on phone: Not on file Gets together: Not on file Attends advent service: Not on file Active member of club or organization: Not on file Attends meetings of clubs or organizations: Not on file Relationship status: Not on file Intimate partner violence: Fear of current or ex partner: Not on file Emotionally abused: Not on file Physically abused: Not on file Forced sexual activity: Not on fileOther Topics Concern Bike Helmet Not Asked History of Breast Feeding Not Asked Self-Exams Not Asked Caffeine Concern Not Asked Hobby Hazards Not Asked Sleep Concern Not Asked Daily Calcium Supplement Not Asked Lead Exposure Not Asked Special Diet Not Asked Daily Vitamin D Supplement Not Asked Service Not Asked Stress Concern Not Asked Domestic Violence in home Not Asked Radon exposure Not Asked Weight Concern Not Asked Exercise Not Asked Seat Belt Not Asked Well water Not Asked Firearms in home Not AskedSocial History Narrative 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 She is active and independent.Medications and AllergiesALLERGIES/SENSITIVITIES: Maxalt [rizatriptan]; Sulfa antibiotics; and Morphineand relatedCurrent Outpatient Medications: aspirin 81 MG chewable tablet, Chew 81 mg daily, Disp: , Rfl: atorvastatin (LIPITOR) 40 MG tablet, Take 1 tablet (40 mg total) by mouthdaily, Disp: 90 tablet, Rfl: 3 Calcium Citrate-Vitamin D (CALCIUM + D PO), Take by mouth daily, Disp: , Rfl: cholecalciferol (VITAMIN D3) 1000 units capsule, Take 1,000 Units by mouthdaily, Disp: , Rfl: Denosumab (PROLIA SC), Inject under the skin 2 INJECTIONS A YEAR, Disp: ,Rfl: Potassium Citrate (UROCIT-K 15 PO), Take by mouth daily , Disp: , Rfl: propranolol (INDERAL LA) 60 MG 24 hr capsule, Take 1 capsule (60 mg total) bymouth nightly, Disp: 90 capsule, Rfl: 3 irbesartan (AVAPRO) 300 MG tablet, Take 300 mg by mouth daily, Disp: , Rfl: nitroglycerin (NITROSTAT) 0.4 MG SL tablet, Place 0.4 mg under the tongueevery 5 (five) minutes as needed for chest pain, Disp: , Rfl:PhysicalPHYSICAL EXAM: Deferred due to Telemedicine encounterWt 68 kg (150 lb) | LMP (LMP Unknown) Comment: post menopause | BMI 29.29kg/m 134/78DiagnosticsLabNoneImaging/Testing: NoneEKG: NoneAssessment & PlanASSESSMENT/PLAN:1. SCAD: She has had no recurrence since 2014 and has had a negative stressechocardiogram last year. She knows to contact us if she dev elops any symptomsor to call 911 for emergencies.2. Hyperlipidemia: She is on a statin3. Essential hypertension: Is adequately controlled with her current medicationI have spent 15 minutes with the patient, counseling/coordinating the patient'scare.I discussed the above listed diagnoses and discussed Prognosis, Managementoption risks and benefits, Treatment/management instructions, Compliance andRisk Factor ReductionFollow up has been arranged and the patient knows to call if any issues arisebetween now and then, all question were answered.Signature: Elisa Lopez, MDDate: February 11, 2020Time: 3:26 PMThis document or parts of this document, were dictated using Nomiosware. A reasonable attempt at proofreading has been made to minimize errors.Please call with any questions or corrections. Name Value Range Interpretation Code Description Data Bianca rce(s) Supporting Document(s) ID Date Data Source [id number] 02/05/2020 03:00:00 PM EST [facility] ([facility]) Name Value Range Interpretation Code Description Data Bianca rce(s) Supporting Document(s) Phosphate [Moles/volume] in Serum or Plasma 5.1 mg/dL 2.5-4.9 [facility] ([facility]) ID Date Data Source [id number] 02/05/2020 02:59:00 PM EST [facility] ([facility]) Name Value Range Interpretation Code Description Data Bianca rce(s) Supporting Document(s) Magnesium 2.0 mg/dL 1.8-2.4 [facility] ID Date Data Source [id number] 02/05/2020 02:59:00 PM EST [facility] ([facility]) Name Value Range Interpretation Code Description Data Bianca rce(s) Supporting Document(s) Urea nitrogen [Mass/volume] in Serum or Plasma 20 mg/dL 7-18 [facility] ([facility]) Glucose [Mass/volume] in Serum or Plasma 105 mg/dL 74-99 [facility] ([facility]) 100-125 mg/dL PRE-DIABETES/FASTING >126 mg/dL DIABETES/FASTING Creatinine 1.2 mg/dL 0.6-1.3 [facility] ([facility]) Potassium [Moles/volume] in Serum or Plasma 4.2 meq/L 3.5-5.1 [facility] ([facility]) Sodium [Moles/volume] in Serum or Plasma 144 meq/L 136-145 [facility] ([facility]) Chloride [Moles/volume] in Serum or Plasma 104 meq/L 98-107 [facility] ([facility]) Calcium [Mass/volume] in Serum or Plasma 9.3 mg/dL 8.5-10.1 [facility] ([facility]) Carbon dioxide, total [Moles/volume] in Serum or Plasma 26 meq/L 21 -32 [facility] ([facility]) Glomerular filtration rate/1.73 sq M pre dicted among non-blacks [Volume Rate/Area] in Serum or Plasma by Creatinine-based formula (MDRD) 46 mL/min [facility] ([facility]) Glomerular filtration rate/1.73 sq M pre dicted among blacks [Volume Rate/Area] in Serum or Plasma by Creatinine-based formula (MDRD) 56 mL/min [facility] ([facility]) <content>CHRONIC KIDNEY DISEASE STAGING PER NKF</content>
<content></content>
<content>STAGE I & II GFR >= 60 NORMAL TO MILDLY DECREASED</content>
<content>STAGE III GFR 30-59 MODERATELY DECREASED</content>
<content>STAGE IV GFR 15-29 SEVERELY DECREASED</content>
<content>STAGE V GFR <15 VERY LITTLE GFR LEFT</content>
<content>ESRD GFR <15 ON BUNDLE HELPER</content>
<content></content> ID Date Data Source [id number] 01/27/2020 11:00:00 AM KIMMY [facility]VAL[facility] ([facility]) Name Value Range Interpretation Code Description Data Bianca rce(s) Supporting Document(s) Laboratory test finding (navigational concept) [facility] Test: COVID-19 Nasal/Naspharynx Result: NOT DETECTED Reference Units: Not detected Note: Please consider re-collection of a new specimen, if clinically indicated. Note: The COVID-19 assay is under Emergency Use Authorization(EUA) by the U.S. Food and Drug Administration. [facility] is designated as a high complexity laboratory by the Clinical Laboratory Improvement Amendments of 1988(CLIA) and is qualified to perform this test. ASSAY INFORMATION: Real Time RT-PCR or TMA. ID Date Data Source [id number] 01/27/2020 12:00:00 AM EST [facility] Name Value Range Interpretation Code Description Data Bianca rce(s) Supporting Document(s) 2019-nCoV RNA XXX CYNDY+probe-Imp [facility] This lab was ordered by [facility] and reported by [facility] ([place]). ID Date Data Source [id number] 01/18/2020 12:00:00 PM EST [facility] Name Value Range Interpretation Code Description Data Bianca rce(s) Supporting Document(s) SARS coronavirus 2 RNA [facility] This lab was ordered by [facility] [id number] [facility] and reported by [facility]. ID Date Data Source [id number] 01/03/2020 12:00:00 AM EST [facility] Nancy Lepine Anp Patient Name: CARMEN SAL [id number] [facility] Date [place] : 1960[place] [address] Date of Exam: 01/03/2020#: Fax: [phone] EXAM: US HEAD AND NECK SOFT TISSUECLINICAL INFORMATION: Followup nodules.Priors: Multiples, the latest 12/15/2018.ISTHMUS: 0.4 cm thickRIGHT LOBE: 3.5 x 1.1 x 1.4 cm LEFT LOBE: 4.2 x 1.5 x 1.6 cmMasses seen: Echogenicity/Location:RIGHT:1. 0.8 x 0.6 x 0.7 cm Solid/inferior2. 0.7 x 0.5 x 0.6 cm Solid/mid-poleLEFT:1. 0.7 x 0.3 x 0.5 cm Solid/mid-pole2. 0.7 x 0.5 x 0.6 cm Solid/mid-poleNo significant change.Accredited by the [employer] in General Ultrasound.ASIM Andrade/Enrico denis for referring CAREMN SAL to our office. Electronically Signed - AILIN CHESTER DO 01/04/20 17:07 Name Value Range Interpretation Code Description Data Bianca rce(s) Supporting Document(s) ID Date Data Source [id number] 12/18/2019 12:10:00 PM EDT [facility] ([facility]) Name Value Range Interpretation Code Description Data Bianca rce(s) Supporting Document(s) Urine Color Laboratory test result [facility] ([facility]) Urine Appearance Laboratory test result [facility] ([facility]) Urine PH 8.5 units 5.0-9.0 [facility] Specific gravity of Urine 1.005 1.005-1.030 [facility] ([facility]) Urine Leukocytes Laboratory test result [facility] ([facility]) Urine Protein Laboratory test result 0-0 [facility] ([facility]) Urine Blood Laboratory test result [facility] ([facility]) Glucose [Presence] in Urine Laboratory test result [facility] ([facility]) Urine Ketone Laboratory test result [facility] ([facility] Urine Nitrite Laboratory test result [facility] ([facility]) Urine Urobilinogen 0.2 mg/dL 0.2-1.0 [facility] ([facility]) Bilirubin.total [Mass/volume] in Serum or Plasma Laboratory test resu lt [facility] ([facility]) ID Date Data Source [id number] 12/18/2019 11:01:00 AM EDT [facility] ([facility]) Name Value Range Interpretation Code Description Data Bianca rce(s) Supporting Document(s) Thyrotropin [Units/volume] in Serum or Plasma by Detec tion limit <= 0.05 mIU/L 2.41 uIU/mL 0.36-3.74 [facility] ([facility] ) ID Date Data Source [id number] 12/18/2019 11:01:00 AM EDT [facility] ([facility]) Name Value Range Interpretation Code Description Data Bianca rce(s) Supporting Document(s) Cholesterol [Mass/volume] in Serum or Plasma 167 mg/dL 131-200 [facility] ([facility]) Cholesterol in LDL [Mass/volume] in Serum or Plasma by calcu lation 73 CALC 50-159 [facility] ([facility]) Cholesterol in HDL [Mass/volume] in Serum or Plasma 73 mg/dL 35-60 [facility] ([facility]) Triglyceride [Mass/volume] in Serum or Plasma 106 mg/dL 30-150 [facility] ([facility]) ID Date Data Source [id number] 12/18/2019 11:01:00 AM EDT [facility] ([facility]) Name Value Range Interpretation Code Description Data Bianca rce(s) Supporting Document(s) Glucose [Mass/volume] in Serum or Plasma 105 mg/dL 74-99 [facility] ([facility]) 100-125 mg/dL PRE-DIABETES/FASTING >126 mg/dL DIABETES/FASTING Urea nitrogen [Mass/volume] in Serum or Plasma 13 mg/dL 7-18 [facility] ([facility]) Creatinine 1.3 mg/dL 0.6-1.3 [facility] Potassium [Moles/volume] in Serum or Plasma 4.6 meq/L 3.5-5.1 [facility] ([facility]) Sodium [Moles/volume] in Serum or Plasma 142 meq/L 136-145 [facility] ([facility]) Calcium [Mass/volume] in Serum or Plasma 10.0 mg/dL 8.5-10.1 [facility] ([facility]) Chloride [Moles/volume] in Serum or Plasma 102 meq/L 98-107 [facility] ([facility]) Carbon dioxide, total [Moles/volume] in Serum or Plasma 30 meq/L 21 -32 [facility] ([facility]) Alkaline phosphatase isoenzyme [Units/volume] in Serum or Pl asma 57 mg/dL 46-116 [facility] ([facility]) Total Bilirubin 0.7 mg/dL 0.2-1.0 [facility] ([facility]) Aspartate aminotransferase [Enzymatic activity/volume] in Serum or Plasma 21 U/L 15-37 [facility] ([facility] ) Albumin [Mass/volume] in Serum or Plasma 4.2 g/dL 3.4-5.0 [facility] ([facility]) Proteinase 3 Ab [Units/volume] in Serum 7.8 g/dL 6.4-8.2 [facility] ([facility]) Alanine aminotransferase [Enzymatic activity/volume] in Seru m or Plasma 24 U/L 12-78 [facility] Glomerular filtration rate/1.73 sq M pre dicted among non-blacks [Volume Rate/Area] in Serum or Plasma by Creatinine-based formula (MDRD) 42 mL/min [facility] ([facility]) A/G Ratio 1.17 CALC 1.00-1.90 [facility] [facility] Glomerular filtration rate/1.73 sq M pre dicted among blacks [Volume Rate/Area] in Serum or Plasma by Creatinine-based formula (MDRD) 51 mL/min [facility] <content>CHRONIC KIDNEY DISEASE STAGING PER NKF</content>
<content></content>
<content>STAGE I & II GFR >= 60 NORMAL TO MILDLY DECREASED</content>
<content>STAGE III GFR 30-59 MODERATELY DECREASED</content>
<content>STAGE IV GFR 15-29 SEVERELY DECREASED</content>
<content>STAGE V GFR <15 VERY LITTLE GFR LEFT</content>
<content>ESRD GFR <15 ON BUNDLE HELPER</content>
<content></content> ID Date Data Source [id number] 12/18/2019 11:01:00 AM EDT [facility] ([facility]) Name Value Range Interpretation Code Description Data Bianca rce(s) Supporting Document(s) Erythrocytes [#/volume] in Blood by Automated count 4.94 x10*6/UL 4.2 0-6.30 [facility] ([facility]) Leukocytes [#/volume] in Blood by Automated count 8.0 x10*3/UL 4.1-10 .9 [facility] ([facility]) MCV 89.5 fL 80.0-97.0 [facility] [facility]) Hemoglobin [Mass/volume] in Blood 15.1 g/dL 12.0-18.0 [facility] Hematocrit [Volume Fraction] of Blood by Automated count 44.2 % 3 7.0-51.0 [facility] MCHC 34.1 g/dL 31.0-38.0 [facility] ([place] [facility]) Erythrocyte distribution width [Ratio] by Automated count 13.3 % 11.6-13.7 [facility] ([facility]) MCH 30.6 pg 26.0-32.0 [facility] ([place] [facility]) MPV 10.2 FL 7.8-11.0 [facility] ([facility]) Platelets [#/volume] in Blood by Automated count 203 x10*3/UL 140-440 [facility] ([facility]) Lymph % 31.8 % 10.0-58.5 [facility] ([place] [facility]) Lymph # 2.5 x10*3/UL 0.6-4.1 [facility] ([facility]) Mid % 7.1 % 1.7-9.3 [facility] ([place] [facility]) Neut % 61.1 % 37.0-92.0 [facility] ([facility]) Neut # 4.9 x10*3/UL 2.0-7.8 [facility] ([facility]) Mid # 0.6 x10*3/UL 0.1-0.6 [facility] ([facility]) ID Date Data Source [id number] 08/09/2019 02:33:00 PM EDT [facility] ([facility]) Name Value Range Interpretation Code Description Data Bianca rce(s) Supporting Document(s) Urea nitrogen [Mass/volume] in Serum or Plasma 17 mg/dL 7-18 [facility] ([facility]) Glucose [Mass/volume] in Serum or Plasma 99 mg/dL 74-99 [facility] ([facility]) 100-125 mg/dL PRE-DIABETES/FASTING >126 mg/dL DIABETES/FASTING Creatinine 1.1 mg/dL 0.6-1.3 [facility] Potassium [Moles/volume] in Serum or Plasma 3.9 meq/L 3.5-5.1 [facility] ([facility]) Sodium [Moles/volume] in Serum or Plasma 142 meq/L 136-145 [facility] ([facility]) Chloride [Moles/volume] in Serum or Plasma 104 meq/L 98-107 [facility] ([facility]) Carbon dioxide, total [Moles/volume] in Serum or Plasma 26 meq/L 21 -32 [facility] ([facility]) Glomerular filtration rate/1.73 sq M pre dicted among non-blacks [Volume Rate/Area] in Serum or Plasma by Creatinine-based formula (MDRD) 51 mL/min [facility] ([facility]) Calcium [Mass/volume] in Serum or Plasma 8.8 mg/dL 8.5-10.1 [facility] ([facility]) Glomerular filtration rate/1.73 sq M pre dicted among blacks [Volume Rate/Area] in Serum or Plasma by Creatinine-based formula (MDRD) Laboratory test result [facility] ([facility]) <content>CHRONIC KIDNEY DISEASE STAGING PER NKF</content>
<content></content>
<content>STAGE I & II GFR >= 60 NORMAL TO MILDLY DECREASED</content>
<content>STAGE III GFR 30-59 MODERATELY DECREASED</content>
<content>STAGE IV GFR 15-29 SEVERELY DECREASED</content>
<content>STAGE V GFR <15 VERY LITTLE GFR LEFT</content>
<content>ESRD GFR <15 ON BUNDLE HELPER</content>
<content></content> ID Date Data Source [id number] 08/03/2019 10:47:26 AM EDT [facility] ClinicPATIE NT INFORMATIONPatient MRN Name Date of Age Gend*PT [id number] Carmen Sal 1960 58 years F ---PT Location Admission Date/Time Visit ID Attending Provider --- --- --- --- EPI ID CSN Admitting Pro vider [id number] ---Cardiology History and PhysicalName: Carmen Sal Gender: femaleDate of : 1960 Age: 58 yearsPrimary Care Provider / Referring Physician: NANCY BUNCH, NPCardiology Telemedicine VisitPatient was identified by name and date of .Verbal consent was obtained from the patient for this telemedicine visit.Patient is aware of the risks, limitations, and benefits of a telemedicinevisit.This telemedicine assessment was conducted remotely with the assistance ofelectronAzuquaommunication technology: Telephone and Interactive Video [id number] - 1+HPI, ROS,Low MDM or 15+ min vocational rehabilitation counselor Face to FaceCurrent HistoryChief Complaint: This is a Telemedicine visitHPI:This patient is a 58 years female with the following updated problem list:1. 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 She then suffered proximal LADdissection and underwent a 2nd procedure later in the year in 2014. In 2016 shesuffered current disease between the 2 stents in the right coronary artery andunderwent a stent procedure at that time. She had no subsequent anginalsymptoms and has had negative catheterization since then.2. Moderate to severe mitral regurgitation by echo: This was something that shehad known about previously however stress echo in 2019 failed to show anyischemia and no MR3. Essential hypertension4. Previous history of a pulmonary embolism5. Kidney stonesReview of Systems General Denies dizziness or lightheadedness. Denies any recent, unexpectedweight changes. HEENT Denies any loss or change of vision. Denies tinnitus. Respiratory Denies PND, orthopnea, LEE, hemoptysis, cough, or shortness ofbreath. Cardiac Denies chest pain or pressure, denies palpitations GI Denies melena, hematochezia, nausea, or vomiting. MS Denies any lower extremity edema. Neuro Denies speech, motor, or sensory impairment. Psych Denies depression or anxiety. Endo Denies polyuria or polydipsia, denies temperature intolerance. Derm Denies diaphoresis, non-healing skin woundsPast HistoryPast Medical History:Diagnosis Date Chronic migraine Coronary artery dissection 09/2014 right and left coronary s/p JAY Essential hypertension controlled with one medication History of pulmonary embolism Moderate mitral regurgitation 10/2014 echo Multiple thyroid nodules 04/08/2017 Myocardial infarction x 4 last in 04/15Pa Surgical History:Procedure Laterality Date SECTION x 3 COLONOSCOPY CORONARY ANGIOPLASTY WITH STENT PLACEMENT 09/2014 [facility] cardiology Dr. Conn[place] and saw EP Dr. Carlos 7 stents placed with 5procedures EXTRACORPOREAL SHOCK WAVE LITHOTRIPSY OVARIAN CYST REMOVAL URETERAL STENT PLACEMENT twice in past none recent UTERINE ABLATIONFamily HistoryProblem Relation Age of Onset Heart attack Father 50 however never had intervention and still alive at this point Heart disease Father Hypertension Father Prostate cancer Father Coronary artery disease Mother 70 heart surgery Diabetes Mother Heart disease Mother Healthy, No Significant History Sister Healthy, No Significant History Brother Healthy, No Significant History Daughter Healthy, No Significant History Son Heart disease Maternal Uncle Lung cancer Paternal Aunt Prostate cancer Paternal Uncle Colon cancer Maternal Grandmother Leukemia Maternal Grandfather Breast cancer Paternal Grandmother Heart disease Paternal Grandfather Healthy, No Significant History Sister Healthy, No Significant History Daughter Healthy, No Significant History Maternal Uncle Alcohol abuse Paternal Uncle Thyroid disease Paternal UncleSocial HistorySocioeconomic History Marital status: Spouse name: Not on file Number of children: 3 Years of education: Not on file Highest education level: Not on fileOccupational History Not on fileSocial Needs Financial resource strain: Not on file Food insecurity: Worry: Not on file Inability: Not on file Transportation needs: Medical: Not on file Non-medical: Not on fileTobacco Use Smoking status: Never Smoker Smokeless tobacco: Never UsedSubstance and Sexual Activity Alcohol use: No Drug use: No Sexual activity: Not on fileLifestyle Physical activity: Days per week: Not on file Minutes per session: Not on file Stress: Not on fileRelationships Social connections: Talks on phone: Not on file Gets together: Not on file Attends advent service: Not on file Active member of club or organization: Not on file Attends meetings of clubs or organizations: Not on file Relatio nship status: Not on file Intimate partner violence: Fear of current or ex partner: Not on file Emotionally abused: Not on file Physically abused: Not on file Forced sexual activity: Not on fileOther Topics Concern Bike Helmet Not Asked History of Breast Feeding Not Asked Self-Exams Not Asked Caffeine Concern Not Asked Hobby Hazards Not Asked Sleep Concern Not Asked Daily Calcium Supplement Not Asked Lead Exposure Not Asked Special Diet Not Asked Daily Vitamin D Supplement Not Asked Service Not Asked Stress Concern Not Asked Domestic Violence in home Not Asked Radon exposure Not Asked Weight Concern Not Asked Exercise Not Asked Seat Belt Not Asked Well water Not Asked Firearms in home Not AskedSocial History Narrative 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 She is active and independent.Medications and AllergiesALLERGIES/SENSITIVITIES: Maxalt [rizatriptan]; Sulfa antibiotics; and Morphineand relatedCurrent Outpatient Medications: Calcium Citrate-Vitamin D (CALCIUM + D PO), Take by mouth daily, Disp: , Rfl: Denosumab (PROLIA SC), Inject under the skin 2 INJECTIONS A YEAR, Disp: ,Rfl: aspirin 81 MG chewable tablet, Chew 81 mg daily, Disp: , Rfl: atorvastatin (LIPITOR) 40 MG tablet, Take 1 tablet (40 mg total) by mouth daily, Disp: 90 tablet, Rfl: 3 cholecalciferol (VITAMIN D3) 1000 units capsule, Take 1,000 Units by mouthdaily, Disp: , Rfl: nitroglycerin (NITROSTAT) 0.4 MG SL tablet, Place 0.4 mg under the tongueevery 5 (five) minutes as needed for chest pain, Disp: , Rfl: Potassium Citrate (UROCIT-K 15 PO), Take by mouth daily , Disp: , Rfl: propranolol (INDERAL LA) 60 MG 24 hr capsule, Take 1 capsule (60 mg total) bymouth nightly, Disp: 90 capsule, Rfl: 3 valsartan-hydrochlorothiazide (DIOVAN-HCT) 80-12.5 MG per tablet, Take 1tablet by mouth daily, Disp: , Rfl:PhysicalPHYSICAL EXAM: General: Alert, No acute distress.Oriented to person, place, and situation.Respiratory: Normal respiratory effort, no increased work of breathing.Psych: Mood and affect appropriate.BP 107/61 | Pulse 62 | Wt 65.8 kg (145 lb) | LMP (LMP Unknown) Comment: postmenopause | BMI 28.32 kg/m DiagnosticsLabNoneImaging/Testing: Stress ECHO reviewedEKG: NoneAssessment & PlanASSESSMENT/PLAN:1. SCAD: rsolved and negative stress ECHO . MR: resolved3. Lipids: on a statin4. HTN: controlled on currentI have spent 15 minutes with the patient, counseling/coordinating the patient'scare.I discussed the above listed diagnoses and discussed Results of diagnostictesting, Prognosis, Management option risks and benefits, Treatment/managementinstructions, Compliance and Risk Factor ReductionFollow up has been arranged and the patient knows to call if any issues arisebetween now and then, all question were answered.Signature: Elisa Lopez, MDDate: August 03, 2019Time: 10:35 AMThis document or parts of this document, were dictated using [employer]. A reasonable attempt at proofreading has been made to minimize errors.Please call with any questions or corrections. Name Value Range Interpretation Code Description Data Bianca rce(s) Supporting Document(s) ID Date Data Source [id number] 07/04/2019 02:15:00 PM EDT [facility] ([facility]) Name Value Range Interpretation Code Description Data Bianca rce(s) Supporting Document(s) Glucose [Mass/volume] in Serum or Plasma 99 mg/dL 74-99 [facility] ([facility]) 100-125 mg/dL PRE-DIABETES/FASTING >126 mg/dL DIABETES/FASTING Creatinine 1.1 mg/dL 0.6-1.3 [facility]) Urea nitrogen [Mass/volume] in Serum or Plasma 18 mg/dL 7-18 [facility] ([facility]) Sodium [Moles/volume] in Serum or Plasma 141 meq/L 136-145 [facility] ([facility]) Chloride [Moles/volume] in Serum or Plasma 103 meq/L 98-107 [facility] ([facility]) Potassium [Moles/volume] in Serum or Plasma 4.0 meq/L 3.5-5.1 [facility] ([facility]) Carbon dioxide, total [Moles/volume] in Serum or Plasma 27 meq/L 21 -32 [facility] ([facility]) Glomerular filtration rate/1.73 sq M pre dicted among non-blacks [Volume Rate/Area] in Serum or Plasma by Creatinine-based formula (MDRD) 51 mL/min [facility] ([facility]) Calcium [Mass/volume] in Serum or Plasma 9.5 mg/dL 8.5-10.1 [facility] ([facility]) Glomerular filtration rate/1.73 sq M pre dicted among blacks [Volume Rate/Area] in Serum or Plasma by Creatinine-based formula (MDRD) Laboratory test result [facility] <content>CHRONIC KIDNEY DISEASE STAGING PER NKF</content>
<content></content>
<content>STAGE I & II GFR >= 60 NORMAL TO MILDLY DECREASED</content>
<content>STAGE III GFR 30-59 MODERATELY DECREASED</content>
<content>STAGE IV GFR 15-29 SEVERELY DECREASED</content>
<content>STAGE V GFR <15 VERY LITTLE GFR LEFT</content>
<content>ESRD GFR <15 ON BUNDLE HELPER</content>
<content></content> ID Date Data Source [id number] 07/04/2019 02:15:00 PM EDT [facility] ([facility]) Name Value Range Interpretation Code Description Data Bianca rce(s) Supporting Document(s) Magnesium 1.9 mg/dL 1.8-2.4 [facility] ([facility]) ID Date Data Source [id number] 07/04/2019 02:15:00 PM EDT [facility] ([facility]) Name Value Range Interpretation Code Description Data Bianca rce(s) Supporting Document(s) Leukocytes [#/volume] in Blood by Automated count 7.7 x10*3/UL 4.1-10 .9 [facility] ([facility]) Erythrocytes [#/volume] in Blood by Automated count 4.71 x10*6/UL 4.2 0-6.30 [facility] ([facility]) Hematocrit [Volume Fraction] of Blood by Automated count 41.9 % 3 7.0-51.0 [facility] ([facility]) Hemoglobin [Mass/volume] in Blood 14.5 g/dL 12.0-18.0 [facility] ([facility]) MCV 88.9 fL 80.0-97.0 [facility]) MCH 30.8 pg 26.0-32.0 [facility]) Platelets [#/volume] in Blood by Automated count 227 x10*3/UL 140-440 [facility] ([facility]) MCHC 34.6 g/dL 31.0-38.0 [facility]) Erythrocyte distribution width [Ratio] by Automated count 12.9 % 11.6-13.7 [facility] ([facility]) Lymph % 30.4 % 10.0-58.5 [facility]) MPV 10.0 FL 7.8-11.0 [facility]) Neut % 62.8 % 37.0-92.0 [facility]) Mid % 6.8 % 1.7-9.3 [facility]) Lymph # 2.3 x10*3/UL 0.6-4.1 [facility] ([facility]) Mid # 0.6 x10*3/UL 0.1-0.6 [facility] ([facility]) Neut # 4.8 x10*3/UL 2.0-7.8 [facility] ([facility]) ID Date Data Source [id number] 04/04/2019 01:23:00 [place] [address] Patient Name: Carmen Sal Exam Date: 04/04/19 : 1960 Ordering Doctor: Judah Parisi Attending Doctor: Judah Parisi CC: ABDOMEN X-RAY 1 VIEW INDICATION: Kidney stone COMPARISON/CORRELATION: No existing prior relevant imaging studies are available. FINDINGS/IMPRESSION: Several densities measuring up to 4 mm project over the left renal shadow. No definite right kidney stones. Renal shadows normal size. No constipation. Bony structures unremarkable. Professional interpretation performed at [facility] [phone]. End of diagnostic report: [id number] Signed: Andrew Og MD 04/04/19 [id number] Interpreted by: Emanuel Ogribed by: Andrew Og Name Value Range Interpretation Code Description Data Bianca rce(s) Supporting Document(s) Procedure Social History Code Duration Value Status Description Data Source(s ) Alcohol intake 02/11/2020 12:00:00 AM EST No completed [facility] Smoking 02/11/2020 12:00:00 AM EST Never smoker completed Never s moker [facility] Vital Signs ID Date Data Source UNK Name Value Range Interpretation Code Description Data Source(s) Body mass index (BMI) [Ratio] 29.29 kg/m2 29.29 kg/m2 [facility] Body weight 68.04 kg 68.04 kg [facility] Body mass index (BMI) [Ratio] 30.3 kg/m2 30.3 k g/m2 [facility] ([facility]) Oxygen saturation in Arterial blood by Pulse oximetry 98 % 98 % [facility] ([facility]) Body weight 155.00 [lb_av] 155.00 [lb_av] [facility] ([facility]) Body height 60 [in_i] 60 [in_i] [facility] ([facility]) 5'0" Heart rate 60 /min 60 /min [facility] ([facility]) Diastolic blood pressure 80 mm[Hg] 80 mm[Hg] [facility] ([facility]) Systolic blood pressure 162 mm[Hg] 162 mm[Hg] [facility] ([facility]) Body mass index (BMI) [Ratio] 31.0 kg/m2 31.0 k g/m2 [facility] ([facility]) Oxygen saturation in Arterial blood by Pulse oximetry 96 % 96 % [facility] ([facility]) Body weight 159.00 [lb_av] 159.00 [lb_av] [facility] ([facility]) Body height 60 [in_i] 60 [in_i] [facility] ([facility]) 5'0" Heart rate 82 /min 82 /min [facility] ([facility]) Diastolic blood pressure 74 mm[Hg] 74 mm[Hg] [facility] ([facility]) Systolic blood pressure 122 mm[Hg] 122 mm[Hg] [facility] ([facility]) Body mass index (BMI) [Ratio] 30.9 kg/m2 30.9 k g/m2 [facility] Body weight 158.00 [lb_av] 158.00 [lb_av] [facility] ([facility]) Body height 60 [in_i] 60 [in_i] [facility] ([facility]) 5'0" Heart rate 77 /min 77 /min [facility] ([facility]) Diastolic blood pressure 70 mm[Hg] 70 mm[Hg] [facility] ([facility]) Systolic blood pressure 114 mm[Hg] 114 mm[Hg] [facility] ([facility]) Patient Treatment Plan of Care Planned Activity Planned Date Details Description Data Source (s) irbesartan 300 MG Oral Tablet 12/19/2019 12:00:00 AM EDT [facility] atorvastatin 40 MG Oral Tablet 08/06/2019 12:00:00 AM EDT [facility] 24 HR Propranolol Hydrochloride 60 MG Extended Release Oral Capsule 08/03/2019 12:00:00 AM EDT [facility] Hydrochlorothiazide 12.5 MG / valsartan 80 MG Oral Tablet [facility]
--- OUTSIDE RECORDS SUMMARY | 2020-03-28 10:49 | CCD | Continuity of Care Document ---
Author Author Pablo Gallegos Organization Unknown Address [address] [facility] [address] [place] [address] Phone [phone] Care Team Providers Care [employer] Program Coordinator Name Role Phone Ronda Dupont ANP AUTM [phone] Dorene Reyes PROGRAM PRODUCTION SPECIALIST AUTM [phone] Problems Active Problems Provider Date Migraine CALDERON Gallegos Onset: 04/30/2011 Kidney stone CALDERON Gallegos Onset: 04/30/2011 Hypertensive chronic kidney disease with stage 1 through stage 4 chronic kidney disease, or unspecified chronic kidney disease CALDERON Gallegos Onset: 10/23/2016 Chronic kidney disease stage 3 CALEDRON Gallegos Onset: Patient post percutaneous transluminal coronary [...] 81mg Tablets 1 by mouth every day JESSICA GallegosP 01/26/2017 Propranolol HCL ER 60mg Caps ER 24 HR Take 1 Capsule By Mouth Once Daily 90caps Ronda Kinney [facility] 1 04/20/2011 Lipitor 40mg Tablets 1 by mouth every day Unknown Nitrostat 0.4mg Tablets Sub one under tongue every 5 minutes x 3 as needed for chest discomfort 30tabs Ronda Kinney [facility] Vitamin D-3 1000Unit Capsules 1 by mouth every day Unknown History Medications Urocit-K 15 15Meq (1620 mg) Tablet s ER 1 PO qd Ronda Kinney [facility] 10/17/2019 - Irbesartan 150mg Tablets 1 by mouth every day 90tabs Ronda Kinney [facility] 08/14/2019 - Valsartan 80mg Tablets 1 by mouth every day 90tabs Ronda Kinney [facility] 08/09/2019 - Medications Administered in Office Medication SIG Qnty Indications Ordering Provider Date Immunization Adminstration,1 Vaccine/Tox oid Injection Ronda Kinney [facility] 12/18/2019 Prolia (denosumab) 60mg,SC injection, ND C#[id number] Injection Ronda Kinney [facility] 07/04/2019 Therapeutic Injection Injection Ronda Kinney [facility] 07/04/2019 Immunization Adminstration,1 Vaccine/Tox oid Injection Ronda Kinney [facility] 12/07/2018 Chemotherpy Admin Subcutaneous/Im Non-Ho rmonal Anti-Neoplastic Injection Ronda Staton [facility] 04/26/2017 Chemotherpy Admin Subcutaneous/Im Non-Ho rmonal Anti-Neoplastic Injection Ronda Staton [facility] 08/11/2016 Immunizations CPT Code Status Date Vaccine Lot # [id number] Given 12/18/2019 Influenza Vaccin e Quadrivalent Preser/Antibiotic Free Im Use [id number] Given 12/07/2018 Influenza Vaccin e Quadrivalent Preser/Antibiotic Free Im Use [id number] 51123 Given 07/18/2015 Pneumovax 23 [id number] Given 01/04/2014 Fluvirin Virus Vaccine 24345 01 Q2037 Given 12/01/2012 Fluvirin Virus Vaccine 72837 01 49859 Given 02/18/2012 Adacel- Tetanus Diphtheria P ertussis (Age64 & Under) 59610 Given 02/18/2012 Adacel- Tetanus Diphtheria P ertussis (Age64 & Under) Q2037 Given 11/30/2011 Fluvirin Virus Vaccine 84602 Given 09/24/2010 Adacel- Tetanus Diphtheria P ertussis (Age64 & Under) 74026 Given 01/09/2010 Influenza Virus Vaccine Vital Signs [...] Date Facility Test Result H/L Range Note Ua Dipstick Only 12/18/2019 [facility] Capsule Maker: [place] [address] [phone] Urine Color YELLOW Yellow Urine Appearance CLEAR Clear Urine PH 8.5 units 5.0 - 9.0 Urine Specific [place] 1.005 1.005 - 1.030 Urine Leukocytes NEGATIVE Negative Urine Blood NEGATIVE Negative Urine Protein NEGATIVE Negative -Trace Urine Glucose NEGATIVE mg/dL Negative Urine Nitrite NEGATIVE Negative Urine Ketone NEGATIVE mg/dL Negative Urine Bilirubin NEGATIVE Negative Urine Urobilinogen 0.2 mg/dL 0.2 - 1.0 Complete Blood Count 12/18/2019 [facility] Capsule Maker: [place] [address] [phone] WBC 8.0 x10*3/UL 4.1 - 10.9 RBC [...] 2.0 - 7.8 Comprehensive Chem Profile 12/18/2019 [facility] Capsule Maker: [place] [address] [phone] Glucose 105 mg/dL High 74 - 99 1 BUN 13 mg/dL 7 - 18 Creatinine [...] Low >60 GFR 51 mL/min Low >60 2 Lipid Profile 12/18/2019 [facility] Capsule Maker: [place] [address] [phone] Cholesterol 167 mg/dL 131 - 200 Triglycerides 106 mg/dL 30 - 150 HDL Cholesterol 73 mg/dL High 35 - 60 LDL (Calculated) 73 CALC 50 - 159 Laboratory test finding 12/18/2019 [facility] Capsule Maker: [place] [address] [phone] Thyroid Stimulating Hormone 2.41 uIU/mL 0.3 6 - 3.74 Basic Metabolic Panel 08/09/2019 [facility] Capsule Maker: [place] [address] [phone] Glucose 99 mg/dL 74 - 99 3 BUN 17 mg/dL 7 - 18 Creatinine 1.1 mg/dL 0.6 - 1.3 Sodium 142 mEq/L 136 - 145 Potassium 3.9 mEq/L 3.5 - 5.1 Chloride 104 mEq/L 98 - 107 Carbon Dioxide 26 mEq/L 21 - 32 Calcium 8.8 mg/dL 8.5 - 10.1 GFR 51 mL/min Low >60 GFR >= 60 mL/min >60 4 1 100-125 mg/dL PRE-DIABET ES/FASTING >126 mg/dL DIABETES/FASTING 2 CHRONIC KIDNEY DISEASE STAGI NG PER NKF STAGE I & II GFR >= 60 NORMAL TO MILDLY DECREASED STAGE III GFR 30-59 MODERATELY DECREASED STAGE IV GFR 15-29 SEVERELY DECREASED STAGE V GFR <15 VERY LITTLE GFR LEFT ESRD GFR <15 ON TRANSITION NURSE 3 100-125 mg/dL PRE-DIABET ES/FASTING >126 mg/dL DIABETES/FASTING 4 CHRONIC KIDNEY DISEASE STAGI NG PER NKF STAGE I & II GFR >= 60 NORMAL TO MILDLY DECREASED STAGE III GFR 30-59 MODERATELY DECREASED STAGE IV GFR 15-29 SEVERELY DECREASED STAGE V GFR <15 VERY LITTLE GFR LEFT ESRD GFR <15 ON TRANSITION NURSE Procedures Date Code Description Status 04/25/2019 [id number] Mammogram Completed 03/15/2018 [id number] Mammogram Completed 02/14/2018 [id number] Bone Mineral Density Test [facility] 03/15/2017 [id number] Mammogram Completed 03/12/2016 [id number] Mammogram Completed 01/13/2016 [id number] Bone Mineral Density Test [facility] 02/12/2014 [id number] Mammogram Completed 12/19/2012 [id number] Mammogram Completed 09/14/2011 [id number] Mammogram Completed 05/31/2011 [id number] Bone Mineral Density Test [facility] 12/28/2010 [id number] Colonoscopy Completed 08/25/2010 [id number] Mammogram Completed 11/06/2008 [id number] Mammogram Completed Medical Devices Description No Information Available Encounters Type Date Location Provider Dx Diagnosis Office Visit 12/18/2019 11:00a [facility] Ronda Menjivar ne, CATH LAB TECHNOLOGIST Z00.00 Encntr for general adult medical exam [...] u nspecified Assessments Date Code Description Provider 12/18/2019 Z00.00 Encounter for genera l adult medical examination without abnormal findings Ronda Kinney [facility] 12/18/2019 I12.9 Hypertensive chronic kidney disease with stage 1 through stage 4 chronic kidney disease, or unspecified chronic kidney disease Ronda Kinney [facility] 12/18/2019 N18.31 Chronic kidney disease, stage 3a Ronda Kinney [facility] 12/18/2019 E04.2 Nontoxic multinodular goiter Ronda Kinney [facility] 12/18/2019 M85.80 Other specified disorders of bon e density and structure, uns Ronda Kinney [facility] 12/18/2019 E66.09 Other obesity due to excess tigist leo Ronda Kinney [facility] 12/18/2019 Z68.30 Body mass index [BMI]30.0-30.9, adult Ronda Kinney [facility] 12/18/2019 Z87.442 Personal history of urinary calc tanisha Ronda Kinney [facility] 12/18/2019 Z98.61 Coronary angioplasty status Ronda Kinney [facility] 12/18/2019 Z23 Encounter for immunization Ronda Harris, [facility] 12/18/2019 E78.00 Pure hypercholesterolemia, unspe cified Ronda Kinney [facility] 08/09/2019 I12.9 Hypertensive chronic kidney disease with stage 1 through stage 4 chronic kidney disease, or unspecified chronic kidney disease Ronda Kinney [facility] 08/09/2019 I12.9 Hypertensive chronic kidney dise ase with stage 1 through sta Lab Schedule 08/09/2019 N18.3 Chronic kidney disease, stage 3 (moderate) Ronda Kinney [facility] 08/09/2019 N18.3 Chronic kidney disease, stage 3 (moderate) Lab Schedule Plan of Treatment Future Appointment(s):* 12/18/2020 10:40 am - CALDERON Gallegos at [facility] * 04/22/2020 2:20 pm - CALDERON Gallegos at [facility] * 02/04/2020 10:10 am - Lab Schedule at [facility] 12/18/2019 - CALDERON Gallegos* Z00.00 Encounter for general adult medical examination without abnormal findings * I12.9 Hypertensive chronic kidney disease with stage 1 through stage 4 chronic kidney disease, or unspecified chronic kidney disease* Comments:* blood pressure is suboptimally controlled here and at home.Will increase Irbesartan to 300mg daily.Recheck BMP in about one month.Continue Propranolol. * Referral:* [facility], * N18.31 Chronic kidney disease, stage 3a* Comments:* BMP pending. * Referral:* [facility], * E04.2 Nontoxic multinodular goiter* New Xrays:* Thyroid U/S, Scheduled: 12/31/19 * Comments:* TSH pending. Will arrange f/u ultrasound [...] Status Appt Date [facility] CONSULT FOR MORTGAGE ASSISTANT [place] KIDNEY DISEASE AND HYPERTENSION Sent [id number] [place] [id number] [phone]
--- OUTSIDE RECORDS SUMMARY | 2020-03-28 10:49 | CCD | Continuity of Care Document ---
Author Author Nurse Pablo Lott Organization Unknown Address [address] [facility] [address] [place] [address] Phone [phone] Care Team Providers Care Pastry Wrapper Name Role Phone Ronda Dupont ANP AUTM [phone] Dorene Reyes SALES REPRESENTATIVE METALS AUTM [phone] Problems Active Problems Provider Date Migraine CALDERON [...] By Mouth Once Daily 90caps Ronda Kinney [facility] 1 04/20/2011 Lipitor 40mg Tablets 1 by mouth every day Unknown Nitrostat 0.4mg Tablets Sub one under tongue every 5 minutes x 3 as needed for chest discomfort 30tabs Ronda Kinney [facility] Vitamin D-3 1000Unit Capsules 1 by mouth every day Unknown History Medications Urocit-K 15 15Meq (1620 mg) Tablet s ER 1 PO qd Ronda Kinney [facility] 10/17/2019 - Irbesartan 150mg Tablets 1 by mouth every day 90tabs Ronda Kinney [facility] 08/14/2019 - Medications Administered in Office Medication SIG Qnty Indications Ordering Provider Date Therapeutic Injection Injection Nurse Schedule 02/08/2020 Immunization Adminstration,1 Vaccine/Tox oid Injection Ronda Kinney [facility] 12/18/2019 Prolia (denosumab) 60mg,SC injection, [place] C#[id number] Injection Ronda Kinney [facility] 07/04/2019 Therapeutic Injection Injection Ronda Kinney [facility] 07/04/2019 Immunization Adminstration,1 Vaccine/Tox oid Injection Ronda Kinney [facility] 12/07/2018 Chemotherpy Admin Subcutaneous/Im Non-Ho rmonal Anti-Neoplastic Injection Ronda Staton, [facility] 04/26/2017 Chemotherpy Admin Subcutaneous/Im Non-Ho rmonal Anti-Neoplastic Injection Ronda Staton, [facility] 08/11/2016 Immunizations CPT Code Status Date Vaccine Lot # [id number] Given 12/18/2019 Influenza Vaccin e Quadrivalent Preser/Antibiotic Free Im Use [id number] 08599 Given 12/07/2018 Influenza Vaccin e Quadrivalent Preser/Antibiotic Free Im Use [id number] 50867 Given 07/18/2015 Pneumovax 23 Q2037 Given 01/04/2014 Fluvirin Virus Vaccine 00561 01 Q2037 Given 12/01/2012 Fluvirin Virus Vaccine 21230 01 58784 Given 02/18/2012 Adacel- Tetanus Diphtheria P ertussis (Age64 & Under) 23455 Given 02/18/2012 Adacel- Tetanus Diphtheria P ertussis (Age64 & Under) Q2037 Given 11/30/2011 Fluvirin Virus Vaccine 94521 Given 09/24/2010 Adacel- Tetanus Diphtheria P ertussis (Age64 & Under) 97943 Given 01/09/2010 Influenza Virus Vaccine Vital Signs [...] H/L Range Note Laboratory test finding 02/05/2020 [place] [address] [place] [address] [phone] Phosphorus Level 5.1 mg/dL High 2.5-4.9 Basic Metabolic Panel 02/05/2020 [facility] Shipping Clerk/Admin: Dr Ger Valdes [place] [id number] [phone] Glucose 105 mg/dL High 74 - 99 [...] Low >60 2 Laboratory test finding 02/05/2020 [facility] Shipping Clerk/Admin: [place] [address] [phone] Magnesium 2.0 mg/dL 1.8 - 2.4 Coronavirus 2018 ([facility]) 01/27/2020 [facility] [address] [place] [address] [phone] Coronavirus 2018 ([facility]) <SEE NOTE> 3 Ua Dipstick Only 12/18/2019 [facility] Shipping Clerk/Admin: [place] [address] [phone] Urine Color YELLOW Yellow Urine Appearance CLEAR Clear Urine PH 8.5 units 5.0 - 9.0 Urine Specific [place] 1.005 1.005 - 1.030 Urine Leukocytes NEGATIVE Negative Urine Blood NEGATIVE Negative Urine Protein NEGATIVE Negative -Trace Urine Glucose NEGATIVE mg/dL Negative Urine Nitrite NEGATIVE Negative Urine Ketone NEGATIVE mg/dL Negative Urine Bilirubin NEGATIVE Negative Urine Urobilinogen 0.2 mg/dL 0.2 - 1.0 Complete Blood Count 12/18/2019 [facility] Shipping Clerk/Admin: [place] [address] [phone] WBC 8.0 x10*3/UL 4.1 - 10.9 RBC [...] 2.0 - 7.8 Comprehensive Chem Profile 12/18/2019 [facility] Shipping Clerk/Admin: [place] [address] [phone] Glucose 105 mg/dL High 74 - 99 [...] mL/min Low >60 5 Lipid Profile 12/18/2019 [facility] Shipping Clerk/Admin: [place] [address] [phone] Cholesterol 167 mg/dL 131 - 200 Triglycerides 106 mg/dL 30 - 150 HDL Cholesterol 73 mg/dL High 35 - 60 LDL (Calculated) 73 CALC 50 - 159 Laboratory test finding 12/18/2019 [facility] Shipping Clerk/Admin: [place] [address] [phone] Thyroid Stimulating Hormone 2.41 uIU/mL 0.3 6 - 3.74 1 100-125 mg/dL PRE-DIABET ES/FASTING >126 mg/dL DIABETES/FASTING 2 CHRONIC KIDNEY DISEASE STAGI NG PER NKF STAGE I & II GFR >= 60 NORMAL TO MILDLY DECREASED STAGE III GFR 30-59 MODERATELY DECREASED STAGE IV GFR 15-29 SEVERELY DECREASED STAGE V GFR <15 VERY LITTLE GFR LEFT ESRD GFR <15 ON ACCESS SERVICES LIBRARIAN 3 Test: COVID-19 Nasal/Naspharynx Result: NOT DETECTED Reference Units: Not detected Note: Please consider re-collection of a new specimen, if clinically indicated. Note: The COVID-19 assay is under Emergency Use Authorization(EUA) by the U.S. Food and Drug Administration. [facility] is designated as a high complexity laboratory [...] LITTLE GFR LEFT ESRD GFR <15 ON ACCESS SERVICES LIBRARIAN Procedures Date Code Description Status 02/08/2020 15988 Therapeutic Injection Completed 04/25/2019 [id number] Mammogram Completed 03/15/2018 [id number] Mammogram Completed 02/14/2018 [id number] Bone Mineral Density Test Comple olivia 03/15/2017 [id number] Mammogram Completed 03/12/2016 [id number] Mammogram Completed 01/13/2016 [id number] Bone Mineral Density Test Comple olivia 02/12/2014 [id number] Mammogram Completed 12/19/2012 [id number] Mammogram Completed 09/14/2011 [id number] Mammogram Completed 05/31/2011 [id number] Bone Mineral Density Test Comple [facility] 12/28/2010 [id number] Colonoscopy Completed 08/25/2010 [id number] Mammogram Completed 11/06/2008 [id number] Mammogram Completed Medical Devices Description No Information Available Encounters Type Date Location Provider Dx Diagnosis Office Visit 12/18/2019 11:00a [facility] Ronda Chow Pi ne, MANDREL CLEANER Z00.00 Encntr for general adult medical exam [...] l adult medical examination without abnormal findings JESSICA GallegosP 12/18/2019 I12.9 Hypertensive chronic kidney disease with stage 1 through stage 4 chronic kidney disease, or unspecified chronic kidney disease Ronda Kinney [facility] 12/18/2019 N18.31 Chronic kidney disease, stage 3a Ronda Kinney [facility] 12/18/2019 E04.2 Nontoxic multinodular goiter Ronda Kinney [facility] 12/18/2019 M85.80 Other specified disorders of bon e density and structure, uns Ronda Kinney [facility] 12/18/2019 E66.09 Other obesity due to excess tigist leo Ronda Kinney [facility] 12/18/2019 Z68.30 Body mass index [BMI]30.0-30.9, adult Ronda Kinney [facility] 12/18/2019 Z87.442 Personal history of urinary calc tanisha Ronda Kinney [facility] 12/18/2019 Z98.61 Coronary angioplasty status Ronda Kinney [facility] 12/18/2019 Z23 Encounter for immunization Ronda Al nixon Harris, [facility] 12/18/2019 E78.00 Pure hypercholesterolemia, unspe cified CALDERON Gallegos Plan of Treatment Future Appointment(s):* 12/18/2020 10:40 am - CALDERON Gallegos at [facility] * 04/22/2020 2:20 pm - CALDERON Gallegos at [facility] 12/18/2019 - CALDERON Gallegos* Z00.00 Encounter for general adult medical examination without abnormal findings * I12.9 Hypertensive chronic kidney disease with stage 1 through stage 4 chronic kidney disease, or unspecified chronic kidney disease* Comments:* blood pressure is suboptimally controlled here and at home.Will increase Irbesartan to 300mg daily.Recheck BMP in about one month.Continue Propranolol. * Referral:* [facility], * N18.31 Chronic kidney disease, stage 3a* Comments:* BMP pending. * Referral:* [facility], * E04.2 Nontoxic multinodular goiter* [...] Status Appt Date [facility] CONSULT FOR HAMMER MILL OPERATOR [facility] DISEASE [facility] HYPERTENSION Sent [address] [place] [address] [phone]
--- OUTSIDE RECORDS SUMMARY | 2020-03-28 10:49 | CCD ---
Continuity of Care Document (CCD) Created on: 02/05/2020 DoronPablo External Reference #: [id number] : [id number] Sex: Female Author Author Lab Schedule, Pablo Servando Organization Unknown Address [address] [place] [id number] Phone Unavailable Care Team Providers Care Predatory Game Hunter Name Role Phone Ronda Dupont ANP AUTM [phone] Dorene Reyes CAMP HOUSEKEEPER AUTM [phone] Problems Active Problems Provider Date Migraine CALDERON [...] 81mg Tablets 1 by mouth every day CADLERON Gallegos 01/26/2017 Propranolol HCL ER 60mg Caps ER 24 HR Take 1 Capsule By Mouth Once Daily 90caps Ronda Kinney [facility] 1 04/20/2011 Lipitor 40mg Tablets 1 by mouth every day Unknown Nitrostat 0.4mg Tablets Sub one under tongue every 5 minutes x 3 as needed for chest discomfort 30tabs Ronda Kinney [facility] Vitamin D-3 1000Unit Capsules 1 by mouth every day Unknown History Medications Urocit-K 15 15Meq (1620 mg) Tablet s ER 1 PO qd Ronda Kinney [facility] 10/17/2019 - Irbesartan 150mg Tablets 1 by mouth every day 90tabs Ronda Kinney [facility] 08/14/2019 - Valsartan 80mg Tablets 1 by mouth every day 90tabs Ronda Kinney [facility] 08/09/2019 - Medications Administered in Office Medication SIG Qnty Indications Ordering Provider Date Immunization Adminstration,1 Vaccine/Tox oid Injection Ronda Kinney [facility] 12/18/2019 Prolia (denosumab) 60mg,SC injection, [place] C#[id number] Injection Ronda Kinney [facility] 07/04/2019 Therapeutic Injection Injection Ronda Kinney [facility] 07/04/2019 Immunization Adminstration,1 Vaccine/Tox oid Injection Ronda Kinney [facility] 12/07/2018 Chemotherpy Admin Subcutaneous/Im Non-Ho rmonal Anti-Neoplastic Injection Ronda Staton [facility] 04/26/2017 Chemotherpy Admin Subcutaneous/Im Non-Ho rmonal Anti-Neoplastic Injection Ronda Staton, [facility] 08/11/2016 Immunizations CPT Code Status Date Vaccine Lot # [id number] Given 12/18/2019 Influenza Vaccin e Quadrivalent Preser/Antibiotic Free Im Use [id number] 86646 Given 12/07/2018 Influenza Vaccin e Quadrivalent Preser/Antibiotic Free Im Use 647129 52639 Given 07/18/2015 Pneumovax 23 Q2037 Given 01/04/2014 Fluvirin Virus Vaccine 51870 01 Q2037 Given 12/01/2012 Fluvirin Virus Vaccine 54561 01 79253 Given 02/18/2012 Adacel- Tetanus Diphtheria P ertussis (Age64 & Under) 50203 Given 02/18/2012 Adacel- Tetanus Diphtheria P ertussis (Age64 & Under) Q2037 Given 11/30/2011 Fluvirin Virus Vaccine 30384 Given 09/24/2010 Adacel- Tetanus Diphtheria P ertussis (Age64 & Under) 26694 Given 01/09/2010 Influenza Virus Vaccine Vital Signs [...] Date Facility Test Result H/L Range Note Coronavirus 2019 ([facility]) 01/27/2020 [facility] [address] [place], [place] [id number] [phone] Coronavirus 2019 ([facility]) <SEE NOTE> 1 Ua Dipstick Only 12/18/2019 [facility] Coremaker Pipe: [place] [address] [phone] Urine Color YELLOW Yellow Urine Appearance CLEAR Clear Urine PH 8.5 units 5.0 - 9.0 Urine Specific [place] 1.005 1.005 - 1.030 Urine Leukocytes NEGATIVE Negative Urine Blood NEGATIVE Negative Urine Protein NEGATIVE Negative -Trace Urine Glucose NEGATIVE mg/dL Negative Urine Nitrite NEGATIVE Negative Urine Ketone NEGATIVE mg/dL Negative Urine Bilirubin NEGATIVE Negative Urine Urobilinogen 0.2 mg/dL 0.2 - 1.0 Complete Blood Count 12/18/2019 [facility] Coremaker Pipe: [place] [address] [phone] WBC 8.0 x10*3/UL 4.1 - 10.9 RBC [...] 2.0 - 7.8 Comprehensive Chem Profile 12/18/2019 [facility] Corem[facility] Pipe: [place] [address] [phone] Glucose 105 mg/dL High 74 - 99 2 BUN 13 mg/dL 7 - 18 Creatinine [...] Low >60 GFR 51 mL/min Low >60 3 Lipid Profile 12/18/2019 [facility] Coremaker Pipe: [place] [address] [phone] Cholesterol 167 mg/dL 131 - 200 Triglycerides 106 mg/dL 30 - 150 HDL Cholesterol 73 mg/dL High 35 - 60 LDL (Calculated) 73 CALC 50 - 159 Laboratory test finding 12/18/2019 [facility] Coremaker Pipe: Dr Ger Valdes [place], [place] [id number] [phone] Thyroid Stimulating Hormone 2.41 uIU/mL 0.3 6 - 3.74 Basic Metabolic Panel 08/09/2019 [facility] Coremaker Pipe: Dr Ger [address] [place], [place] [address] [phone] Glucose 99 mg/dL 74 - 99 4 BUN 17 mg/dL 7 - 18 Creatinine 1.1 mg/dL 0.6 - 1.3 Sodium 142 mEq/L 136 - 145 Potassium 3.9 mEq/L 3.5 - 5.1 Chloride 104 mEq/L 98 - 107 Carbon Dioxide 26 mEq/L 21 - 32 Calcium 8.8 mg/dL 8.5 - 10.1 GFR 51 mL/min Low >60 GFR >= 60 mL/min >60 5 1 Test: COVID-19 Nasal/Naspharynx Result: NOT DETECTED Reference Units: Not detected Note: Please consider re-collection of a new specimen, if clinically indicated. Note: The COVID-19 assay is under Emergency Use Authorization(EUA) by the U.S. Food and Drug Administration. [facility] is designated as a high complexity laboratory by the Clinical Laboratory Improvement Amendments of 1988(CLIA) and is qualified to perform this test. ASSAY INFORMATION: Real Time RT-PCR or TMA. 2 100-125 mg/dL PRE-DIABET ES/FASTING >126 mg/dL DIABETES/FASTING 3 CHRONIC KIDNEY DISEASE STAGI NG PER NKF STAGE I & II GFR >= 60 NORMAL TO MILDLY DECREASED STAGE III GFR 30-59 MODERATELY DECREASED STAGE IV GFR 15-29 SEVERELY DECREASED STAGE V GFR <15 VERY LITTLE GFR LEFT ESRD GFR <15 ON SAND MOLDER 4 100-125 mg/dL PRE-DIABET ES/FASTING >126 mg/dL DIABETES/FASTING 5 CHRONIC KIDNEY DISEASE STAGI NG PER NKF STAGE I & II GFR >= 60 NORMAL TO MILDLY DECREASED STAGE III GFR 30-59 MODERATELY DECREASED STAGE IV GFR 15-29 SEVERELY DECREASED STAGE V GFR <15 VERY LITTLE GFR LEFT ESRD GFR <15 ON SAND MOLDER Procedures Date Code Description Status 04/25/2019 [id number] Mammogram Completed 03/15/2018 [id number] Mammogram Completed 02/14/2018 [id number] Bone Mineral Density Test Comple olivia 03/15/2017 [id number] Mammogram Completed 03/12/2016 [id number] Mammogram Completed 01/13/2016 [id number] Bone Mineral Density Test Comple olivia 02/12/2014 [id number] Mammogram Completed 12/19/2012 [id number] Mammogram Completed 09/14/2011 [id number] Mammogram Completed 05/31/2011 [id number] Bone Mineral Density Test Comple olivia 12/28/2010 [id number] Colonoscopy Completed 08/25/2010 [id number] Mammogram Completed 11/06/2008 [id number] Mammogram Completed Medical Devices Description No Information Available Encounters Type Date Location Provider Dx Diagnosis Office Visit 12/18/2019 11:00a [facility] Ronda Menjivar ne, OUTSOLE COMPRESSOR Z00.00 Encntr for general adult medical exam [...] l adult medical examination without abnormal findings CALDERON Gallegos 12/18/2019 I12.9 Hypertensive chronic kidney disease with stage 1 through stage 4 chronic kidney disease, or unspecified chronic kidney disease CALDERON Gallegos 12/18/2019 N18.31 Chronic kidney disease, stage 3a CALDERON Gallegos 12/18/2019 E04.2 Nontoxic multinodular goiter Ronda Kinney, [facility] 12/18/2019 M85.80 Other specified disorders of bon e density and structure, uns Ronda Kinney, [facility] 12/18/2019 E66.09 Other obesity due to excess tigist leo Ronda Kinney, [facility] 12/18/2019 Z68.30 Body mass index [BMI]30.0-30.9, adult Ronda Kinney, [facility] 12/18/2019 Z87.442 Personal history of urinary calc tanisha Ronda Kinney, [facility] 12/18/2019 Z98.61 Coronary angioplasty status Ronda Kinney, [facility] 12/18/2019 Z23 Encounter for immunization Ronda Harris, [facility] 12/18/2019 E78.00 Pure hypercholesterolemia, unspe cified Ronda Kinney, [facility] 08/09/2019 I12.9 Hypertensive chronic kidney disease with stage 1 through stage 4 chronic kidney disease, or unspecified chronic kidney disease Ronda Claudine Harris [facility] 08/09/2019 I12.9 Hypertensive chronic kidney dise ase with stage 1 through sta Lab Schedule 08/09/2019 N18.3 Chronic kidney disease, stage 3 (moderate) Ronda Claudine Harris [facility] 08/09/2019 N18.3 Chronic kidney disease, stage 3 (moderate) Lab Schedule Plan of Treatment Future Appointment(s):* 02/06/2020 3:00 pm - Nurse Schedule at [facility] * 12/18/2020 10:40 am - CALDERON Gallegos at [facility] * 04/22/2020 2:20 pm - CALDERON Gallegos at [facility] 12/18/2019 - CALDERON Gallegos* Z00.00 Encounter for general adult medical examination without abnormal findings * I12.9 Hypertensive chronic kidney disease with stage 1 through stage 4 chronic kidney disease, or unspecified chronic kidney disease* Comments:* blood pressure is suboptimally controlled here and at home.Will increase Irbesartan to 300mg daily.Recheck BMP in about one month.Continue Propranolol. * Referral:* [facility], * N18.31 Chronic kidney disease, stage 3a* Comments:* BMP pending. * Referral:* [facility], * E04.2 Nontoxic multinodular goiter* Comments:* [...] Status Appt Date [facility] CONSULT FOR AUTO DISMANTLER [facility] KIDNEY DISEASE AND HYPERTENSION Sent [address] [place] [address] [phone]
[2020-03-28] MEDS ORDERED: D31000TA2 PO (11:02)
[2020-03-28] MEDS ORDERED: CHLO125TA (11:02)
[2020-03-28] MEDS ORDERED: PROL60SO (11:02)
[2020-03-28] MEDS ORDERED: POTA4.25 (11:02)
[2020-03-28] MEDS ORDERED: CALC600T57 PO (11:02)
[2020-03-28] MEDS ORDERED: IRBE300T7 (11:02)
[2020-03-28] MEDS ORDERED: PROP60CA (11:02)
[2020-03-28] MEDS ORDERED: ATOR40TA75 (11:02)
[2020-03-28] MEDS ORDERED: NS 1,000 ML IV ONE (11:45)
[2020-03-28] MEDS ORDERED: ONDANSETRON 4MG/2ML VIAL IV ONE (11:45)
[2020-03-28] MEDS ORDERED: KETOROLAC 30 MG/ML 1ML VIAL IV ONE (11:45)
[2020-03-28] MEDS ORDERED: ACETAMINOPHEN 325 MG TAB PO ONE (12:15)
[2020-03-28 12:17] LABS: BASO % 0.2 % (0.0-1.0); EOS % 0.1 % (0.0-3.0); HEMATOCRIT 41.3 % (36.0-47.0); LYMPH # 0.8 10^3/uL (1.5-5.0); LYMPH % 6.6 % (24.0-44.0); MEAN CORPUSCULAR HEMOGLOBIN 30.8 pg (27.0-33.0); MEAN CORPUSCULAR HGB CONC 33.9 g/dl (32.0-36.5); MONO # 0.4 10^3/uL (0.0-0.8); MONO % 3.4 % (0.0-5.0); NEUTROPHILS # 10.3 10^3/uL (1.5-8.5); PLATELET COUNT, AUTOMATED 157 10^3/uL (150-450); RED BLOOD COUNT 4.54 10^6/uL (4.00-5.40); WHITE BLOOD COUNT 11.5 10^3/uL (4.0-10.0)
[2020-03-28] MEDS ORDERED: ISOVUE-370 76% 100ML VIAL As Ordered ONE (12:21)
--- OUTSIDE RECORDS SUMMARY | 2020-03-28 12:22 | CCD ---
Author Author [facility] Organization [facility] Address Unknown Phone Unavailable Care Team Providers Care Fish Straightener Name Role Phone Demario LOPEZ MD Unavailable [...] LOPEZ MD Unavailable Unavailable LePine, M Nancy HEALTH RECORDS TECHNOLOGY TEACHER Unavailable Unavailable LePine, M Nancy HEALTH RECORDS TECHNOLOGY TEACHER Unavailable Unavailable LePine, M Nancy HEALTH RECORDS TECHNOLOGY TEACHER Unavailable Unavailable LePine, M Nancy HEALTH RECORDS TECHNOLOGY TEACHER Unavailable Unavailable LePine, M Nancy HEALTH RECORDS TECHNOLOGY TEACHER Unavailable Unavailable LePine, M Nancy HEALTH RECORDS TECHNOLOGY TEACHER Unavailable Unavailable LePine, M Nancy HEALTH RECORDS TECHNOLOGY TEACHER Unavailable Unavailable LePine, M Nancy HEALTH RECORDS TECHNOLOGY TEACHER Unavailable Unavailable LePine, M Nancy HEALTH RECORDS TECHNOLOGY TEACHER Unavailable Unavailable LePine, M Nancy HEALTH RECORDS TECHNOLOGY TEACHER Unavailable Unavailable LePine, M Nancy HEALTH RECORDS TECHNOLOGY TEACHER Unavailable Unavailable LePine, M Nancy HEALTH RECORDS TECHNOLOGY TEACHER Unavailable Unavailable LePine, M Nancy HEALTH RECORDS TECHNOLOGY TEACHER Unavailable Unavailable LePine, M Nancy HEALTH RECORDS TECHNOLOGY TEACHER Unavailable Unavailable LePine, M Nancy HEALTH RECORDS TECHNOLOGY TEACHER Unavailable Unavailable LePine, M Nancy HEALTH RECORDS TECHNOLOGY TEACHER Unavailable Unavailable LePine, M Nancy HEALTH RECORDS TECHNOLOGY TEACHER Unavailable Unavailable LePine, M Nancy HEALTH RECORDS TECHNOLOGY TEACHER Unavailable Unavailable LePine, M Nancy HEALTH RECORDS TECHNOLOGY TEACHER Unavailable Unavailable LePine, M Nancy HEALTH RECORDS TECHNOLOGY TEACHER Unavailable Unavailable LePine, M Nancy HEALTH RECORDS TECHNOLOGY TEACHER Unavailable Unavailable LePine, M Nancy HEALTH RECORDS TECHNOLOGY TEACHER Unavailable Unavailable LePine, M Nancy HEALTH RECORDS TECHNOLOGY TEACHER Unavailable Unavailable LePine, M Nancy HEALTH RECORDS TECHNOLOGY TEACHER Unavailable Unavailable LePine, M Nancy HEALTH RECORDS TECHNOLOGY TEACHER Unavailable Unavailable LePine, M Nancy HEALTH RECORDS TECHNOLOGY TEACHER Unavailable Unavailable LePine, M Nancy HEALTH RECORDS TECHNOLOGY TEACHER Unavailable Unavailable LePine, M Nancy HEALTH RECORDS TECHNOLOGY TEACHER Unavailable Unavailable LePine, M Nancy HEALTH RECORDS TECHNOLOGY TEACHER Unavailable Unavailable LePine, M Nancy HEALTH RECORDS TECHNOLOGY TEACHER Unavailable Unavailable LePine, M Nancy HEALTH RECORDS TECHNOLOGY TEACHER Unavailable Unavailable LePine, M Nancy HEALTH RECORDS TECHNOLOGY TEACHER Unavailable Unavailable LePine, M Nancy HEALTH RECORDS TECHNOLOGY TEACHER Unavailable Unavailable LePine, M Nancy HEALTH RECORDS TECHNOLOGY TEACHER Unavailable Unavailable LePine, M Nancy HEALTH RECORDS TECHNOLOGY TEACHER Unavailable Unavailable LePine, M Nancy HEALTH RECORDS TECHNOLOGY TEACHER Unavailable Unavailable LePine, M Nancy HEALTH RECORDS TECHNOLOGY TEACHER Unavailable Unavailable LePine, M Nancy HEALTH RECORDS TECHNOLOGY TEACHER Unavailable Unavailable LePine, M Nancy HEALTH RECORDS TECHNOLOGY TEACHER Unavailable Unavailable LePine, M Nancy HEALTH RECORDS TECHNOLOGY TEACHER Unavailable Unavailable LePine, M Nancy HEALTH RECORDS TECHNOLOGY TEACHER Unavailable Unavailable LePine, M Nancy HEALTH RECORDS TECHNOLOGY TEACHER Unavailable Unavailable LePine, M Nancy HEALTH RECORDS TECHNOLOGY TEACHER Unavailable Unavailable LePine, M Nancy HEALTH RECORDS TECHNOLOGY TEACHER Unavailable Unavailable LePine, M Nancy HEALTH RECORDS TECHNOLOGY TEACHER Unavailable Unavailable LePine, M Nancy HEALTH RECORDS TECHNOLOGY TEACHER Unavailable Unavailable LePine, M Nancy HEALTH RECORDS TECHNOLOGY TEACHER Unavailable Unavailable LePine, M Nancy HEALTH RECORDS TECHNOLOGY TEACHER Unavailable Unavailable LePine, M Nancy HEALTH RECORDS TECHNOLOGY TEACHER Unavailable Unavailable LePine, M Nancy HEALTH RECORDS TECHNOLOGY TEACHER Unavailable Unavailable LePine, M Nancy HEALTH RECORDS TECHNOLOGY TEACHER Unavailable Unavailable LePine, M Nancy HEALTH RECORDS TECHNOLOGY TEACHER Unavailable Unavailable LePine, M Nancy HEALTH RECORDS TECHNOLOGY TEACHER Unavailable Unavailable LePine, M Nancy HEALTH RECORDS TECHNOLOGY TEACHER Unavailable Unavailable LePine, M Nancy HEALTH RECORDS TECHNOLOGY TEACHER Unavailable Unavailable JUDAH PARISI MD Unavailable Unavailable [...] is protected by Article 27-F of the [facility] Public Health law. If you continue you may have access to information: Regarding HIV / AIDS; Provided by facilities licensed or operated by the [facility] Office of Mental Health; or Provided by the [facility] Office for People With Developmental Disabilities. If such information is present, then the following [facility] mandated warning applies: This information has been [...] law may result in a fine or alf sentence or both. A general authorization for the release of medical or other information is NOT sufficient authorization for further disc losure. Family History Family Member Name Family Member Gender Family Member Status Date o f Status Description Data Source(s) Unknown Unknown Problem [facility] ([facility]) FATHER AGE 50. Prostate cancer. Unknown Male Problem [facility] ([facility] Unknown Unknown Problem [facility] ([facility]) Unknown Unknown Problem [facility] ([facility]) Unknown Unknown Problem [facility] ([facility]) Unknown Unknown Problem [facility] ([facility]) Unknown Unknown Problem [facility] ([facility]) Encounters Encounter Providers Location Date Indications Data Source(s ) Outpatient Attender: ELISA MCNALLYBF 02/11/2020 12:00:00 AM EST [facility] Outpatient Attender: Nancy Raines 12/17 11:00:00 AM EDT [facility] ([facility] ) Outpatient Attender: ELISA LOPEZ MD BF-BF 08/03/2019 07:47:18 AM EDT [facility] Outpatient Attender: Nancy Raines 07/03 01:40:00 PM EDT [facility] ([facility] ) Outpatient Attender: JDUAH PARISI MD 04/04/2019 01:02:00 PM EST [facility] Xr Outpatient Attender: Nancy Raines 03/16 12:00:00 PM EST [facility] ([facility] ) Immunizations Vaccine Date Status Description [...] 03/01/2020 [facility] Prolia (denosumab) 60mg,SC injection, [facility][NOTE 3]#[id number] 02/08/2020 12:00:00 AM EST completed [facility] ([facility]) Medication administered onsite Therapeutic Injection 02/08/2020 12:00:00 AM EST completed [facility] ([facility]) Medication administered onsite irbesartan 300 MG Oral Tablet irbesartan (AVAPRO) 300 MG tablet irbesartan (AVAPRO) 300 MG tablet 12/19/2019 12:00:00 AM EDT 300 mg Oral active Take 300 mg by mouth daily [facility] 300 mg 12/19/2019 12:00:00 AM EDT tablet [...] 12/18/2019 12:00:00 AM EDT ORAL active [facility] ([facility]) Immunization Adminstration,1 Vaccine/Toxoid 12/18/2019 12:00 :00 AM EDT completed [facility] ([facility]) Medication administered onsite Calcium Carbonate 1500 MG / Cholecalciferol 200 UNT Oral Tab let Calcium + D3 12/18/2019 12:00:00 AM EDT ORAL active [facility] ([facility]) 15 mEq 10/18/2019 12:00:00 AM EDT [...] ER 10/17/2019 12:00:00 AM EDT active [facility] ([facility]) potassium citrate 15 MEQ Extended Release Oral Tablet [Uroci t-K] Urocit-K 15 10/17/2019 12:00:00 AM EDT ORAL completed [facility] ([facility]) 150 mg 08/22/2019 12:00:00 AM EDT [...] 08/14/2019 12:00:00 AM EDT ORAL completed [facility] ([facility]) valsartan 80 MG Oral Tablet Valsartan 08/09/2019 12:00:00 AM EDT ORAL completed [facility] ([facility]) 40 mg 08/06/2019 12:00:00 AM EDT [...] tablet (40 mg total) by mouth daily [facility] atorvastatin 40 MG Oral Tablet ATORVASTATIN CALCIUM [...] capsule (60 mg total) by mouth nightly [facility] 60 mg 08/03/2019 12:00:00 AM EDT capsule,extended [...] Injection 07/04/2019 12:00:00 AM EDT completed [facility] ([facility]) Medication administered onsite Prolia (denosumab) 60mg,SC injection, [facility][NOTE 3]#[id number] 07/04/2019 12:00:00 AM EDT completed [facility] ([facility]) Medication administered onsite 80-12.5 mg 04/19/2019 [...] aborted Take 1 tablet by mouth daily [facility] Insurance Providers Payer name Policy type / Coverage type Policy ID Covered constitution party ID Covered constitution party's relationship to appiah Policy Appiah Plan Information BCBS LILIANA ANTHONY PPO 302/[id number] HU2 [id number] EXCELLUS BCBS EXCELLUS BCBS [id number] Spo CEP [id number] SELF PAY ONLY [id number] SP 105 [id number] EXCELLUS BCBS B [id number] P CEP [id number] SELF PAY BLUE CROSS [id number] SPO [id number] Lifetime Benefit MGD Care Medigap Part B [id number] Family Dependent [id number] BCBS CN[place] Medigap Part B [id number] Family Dependent [id number] BCBS Bluecard Commercial Commercial [id number] Family Dependent [id number] [employer]ms[employer] Managed Care Medigap Part B [id number] Family Dependent [id number] Lifetime Benefit (Rmsco) Commercial [id number] Self [id number] BS [place] Trad/MX Commercial [id number] Family Dependen t [id number] Lifetime Benefit ([employer]msco) Commercial [id number] Family Depende nt [id number] LIFETIME BENEFIT SOLU [id number] Spo [id number] LIFETIME BENEFIT SOLUTIO O [id number] O [id number] Lifetime Benefit MGD Care Commercial [id number] Family Dep endent [id number] Lifetime Benefit (Rmsco) Commercial [id number] Self [id number] Lifetime Benefit (Rmsco) Commercial Pos Family Depende nt Pos Lifetime Benefit (Rmsco) Commercial Self LIFETIME BENEFIT SOLUTIONS [id number] SP [id number] EBSRMSCO LIFETIME BENEFIT SOLU [id number] Spo [id number] EBSRMSCO LIFETIME BENEFIT SOLU [id number] Spo [id number] SELF PAY UNAVAILABLE SP UNAVAILA BLE EBS RMSCO [id number] Spo [id number] Lifetime Benefit Solution Commercial Self LIFETIME BENEFIT SOLUTIONS U [id number] Self [id number] EBS RMSCO [id number] Spo [id number] RMSCO MEDICAL CLAIMS [id number] HU2 [id number] RMSCO P [id number] P [id number] RMSCO P [id number] P [id number] Problems, Conditions, and Diagnoses Code Display Name Description Problem Type Effective Dates Data Source(s) N20.0 Calculus of kidney N20.0 - Calculus of kidney Diagnosi s 04/04/2019 01:02:00 PM EST [facility] Surgeries/Procedures Procedure Description Date Indications Data Source(s) THERAPEUTIC PROPHYLACTIC/DX INJECTION SUBQ/IM 02/08/20 12:00:00 AM EST [facility] ([facility]) THERAPEUTIC PROPHYLACTIC/DX INJECTION SUBQ/IM 07/04/19 12:00:00 AM EDT [facility] ([facility]) Mammogram 04/25/2019 12:00:00 AM EST M [facility] ([facility]) Results ID Date Data Source [id number] 02/11/2020 03:33:13 PM [facility] MR[facility] Name Date of Age Gend*PT [id number] Carmen Sal 1960 59 years F ---PT Location Admission Date/Time Visit ID Attending Provider --- --- --- --- EPI ID CSN Admitting Provider [id number] ---Cardiology History and PhysicalName: Carmen Sal Gender: femaleDate of : 1960 Age: 59 yearsPrimary Care Provider / Referring Physician: NANCY BUNCH, NPCardiology Telemedicine VisitPatient was identified by name and date of .Verbal consent was obtained from the patient for this telemedicine visit.Patient is aware of the risks, limitations, and benefits of a telemedicinevisit.This telemedicine assessment was conducted remotely with the assistance ofelectronConcur Japanommunication technology: Telephone Only Codes 90915: 21- 30 minutes of medicaldiscussion: Telephone OnlyCurrent [...] COLONOSCOPY CORONARY ANGIOPLASTY WITH STENT PLACEMENT 09/2014 [facility] cardiology Dr. Connolly and saw EP Dr. 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 A reasonable attempt at proofreading has been made to minimize errors.Please call with any questions or corrections. Name Value Range Interpretation Code Description Data Bianca rce(s) Supporting Document(s) ID Date Data Source [id number] 02/05/2020 03:00:00 PM EST [facility] ([facility]) Name Value Range Interpretation Code Description Data Bianca rce(s) Supporting Document(s) Phosphate [Moles/volume] in Serum or Plasma 5.1 mg/dL 2.5-4.9 [facility] ([facility]) ID Date Data Source [id number] 02/05/2020 02:59:00 PM EST [facility] ([facility]) Name Value Range Interpretation Code Description Data Bianca rce(s) Supporting Document(s) Magnesium 2.0 mg/dL 1.8-2.4 [facility] [facility] ID Date Data Source [id number] 02/05/2020 02:59:00 PM EST [facility] ([facility]) Name Value Range Interpretation Code Description Data Bianca rce(s) Supporting Document(s) Urea nitrogen [Mass/volume] in Serum or Plasma 20 mg/dL 7-18 [facility] ([facility]) Glucose [Mass/volume] in Serum or Plasma 105 mg/dL 74-99 [facility] ([facility]) 100-125 mg/dL PRE-DIABETES/FASTING >126 mg/dL DIABETES/FASTING Creatinine 1.2 mg/dL 0.6-1.3 [facility] ([facility]) Potassium [Moles/volume] in Serum or Plasma 4.2 meq/L 3.5-5.1 [facility] ([facility]) Sodium [Moles/volume] in Serum or Plasma 144 meq/L 136-145 [facility] ([facility]) Chloride [Moles/volume] in Serum or Plasma 104 meq/L 98-107 [facility] ([facility]) Calcium [Mass/volume] in Serum or Plasma 9.3 mg/dL 8.5-10.1 [facility] ([facility]) Carbon dioxide, total [Moles/volume] in Serum or Plasma 26 meq/L 21 -32 [facility] ([facility]) Glomerular filtration rate/1.73 sq M pre dicted among non-blacks [Volume Rate/Area] in Serum or Plasma by Creatinine-based formula (MDRD) 46 mL/min [facility] ([facility]) Glomerular filtration rate/1.73 sq M pre dicted among blacks [Volume Rate/Area] in Serum or Plasma by Creatinine-based formula (MDRD) 56 mL/min ADELIA ([facility]) <content>CHRONIC KIDNEY DISEASE STAGING PER NKF</content>
<content></content>
<content>STAGE I & II GFR >= 60 NORMAL TO MILDLY DECREASED</content>
<content>STAGE III GFR 30-59 MODERATELY DECREASED</content>
<content>STAGE IV GFR 15-29 SEVERELY DECREASED</content>
<content>STAGE V GFR <15 VERY LITTLE GFR LEFT</content>
<content>ESRD GFR <15 ON GATHERING MACHINE SETTER</content>
<content></content> ID Date Data Source [id number] 01/27/2020 11:00:00 AM KIMMY DELVALLE ([facility]) Name Value Range Interpretation Code Description Data Bianca rce(s) Supporting Document(s) Laboratory test finding (navigational concept) [facility] [facility] Test: COVID-19 Nasal/Naspharynx Result: NOT DETECTED Reference Units: Not detected Note: Please consider re-collection of a new specimen, if clinically indicated. Note: The COVID-19 assay is under Emergency Use Authorization(EUA) by the U.S. Food and Drug Administration. [facility] is designated as a high complexity laboratory by the Clinical Laboratory Improvement Amendments of 1988(CLIA) and is qualified to perform this test. ASSAY INFORMATION: Real Time RT-PCR or TMA. ID Date Data Source [id number] 01/27/2020 12:00:00 AM EST [facility] Name Value Range Interpretation Code Description Data Bianca rce(s) Supporting Document(s) 2019-nCoV RNA XXX CYNDY+probe-Imp [facility] This lab was ordered by [facility] and reported by [employer]. ID Date Data Source [id number] 01/18/2020 12:00:00 PM EST [facility] Name Value Range Interpretation Code Description Data Bianca rce(s) Supporting Document(s) SARS coronavirus 2 RNA [facility] This lab was ordered by [employer] [employer] and reported by [facility]. ID Date Data Source [id number] 01/03/2020 12:00:00 AM EST [facility] Nancy Lepine Anp Patient Name: CARMEN SAL [id number] [facility] Date of : 1960[place] [address] Date of Exam: 01/03/2020#: Fax: [phone] EXAM: [...] 0.6 cm Solid/mid-poleNo significant change.Accredited by the [employer] in General Ultrasound.ASIM Andrade/Enrico denis for referring CARMEN SAL to our office. Electronically Signed - AILIN CHESTER DO 01/04/20 17:07 Name Value Range Interpretation Code Description Data Bianca rce(s) Supporting Document(s) ID Date Data Source [id number] 12/18/2019 12:10:00 PM EDT [facility] Name Value Range Interpretation Code Description Data Bianca rce(s) Supporting Document(s) Urine Color Laboratory test result [facility] ([facility]) Urine Appearance Laboratory test result [facility] ([facility]) Urine PH 8.5 units 5.0-9.0 [facility] [facility] Specific gravity of Urine 1.005 1.005-1.030 [facility] ([facility]) Urine Leukocytes Laboratory test result [facility] ([facility]) Urine Protein Laboratory test result 0-0 [facility] ([facility]) Urine Blood Laboratory test result [facility] ([facility]) Glucose [Presence] in Urine [facility]) Urine Ketone Laboratory test result [facility] ([facility]) Urine Nitrite Laboratory test result [facility] ([facility]) Urine Urobilinogen 0.2 mg/dL 0.2-1.0 [facility] ([facility]) Bilirubin.total [Mass/volume] in Serum or Plasma Laboratory test resu lt [facility] ([facility]) ID Date Data Source [id number] 12/18/2019 11:01:00 AM EDT [facility] ([facility]) Name Value Range Interpretation Code Description Data Bianca rce(s) Supporting Document(s) Thyrotropin [Units/volume] in Serum or Plasma by Detec tion limit <= 0.05 mIU/L 2.41 uIU/mL 0.36-3.74 [facility] ([facility] ) ID Date Data Source [id number] 12/18/2019 11:01:00 AM EDT [facility] ([facility]) Name Value Range Interpretation Code Description Data Bianca rce(s) Supporting Document(s) Cholesterol [Mass/volume] in Serum or Plasma 167 mg/dL 131-200 [facility] ([facility]) Cholesterol in LDL [Mass/volume] in Serum or Plasma by calcu lation 73 CALC 50-159 [facility] ([facility]) Cholesterol in HDL [Mass/volume] in Serum or Plasma 73 mg/dL 35-60 [facility] ([facility]) Triglyceride [Mass/volume] in Serum or Plasma 106 mg/dL 30-150 [facility] ([facility]) ID Date Data Source [id number] 12/18/2019 11:01:00 AM EDT [facility] ([facility]) Name Value Range Interpretation Code Description Data Bianca rce(s) Supporting Document(s) Glucose [Mass/volume] in Serum or Plasma 105 mg/dL 74-99 [facility] ([facility]) 100-125 mg/dL PRE-DIABETES/FASTING >126 mg/dL DIABETES/FASTING Urea nitrogen [Mass/volume] in Serum or Plasma 13 mg/dL 7-18 [facility] ([facility]) Creatinine 1.3 mg/dL 0.6-1.3 [facility] [facility] Potassium [Moles/volume] in Serum or Plasma 4.6 meq/L 3.5-5.1 [facility] ([facility]) Sodium [Moles/volume] in Serum or Plasma 142 meq/L 136-145 [facility] ([facility]) Calcium [Mass/volume] in Serum or Plasma 10.0 mg/dL 8.5-10.1 [facility] ([facility]) Chloride [Moles/volume] in Serum or Plasma 102 meq/L 98-107 [facility] ([facility]) Carbon dioxide, total [Moles/volume] in Serum or Plasma 30 meq/L 21 -32 [facility] ([facility]) Alkaline phosphatase isoenzyme [Units/volume] in Serum or Pl asma 57 mg/dL 46-116 [facility] ([facility]) Total Bilirubin 0.7 mg/dL 0.2-1.0 [facility] ([facility]) Aspartate aminotransferase [Enzymatic activity/volume] in Serum or Plasma 21 U/L 15-37 [facility] ([facility] ) Albumin [Mass/volume] in Serum or Plasma 4.2 g/dL 3.4-5.0 [facility] ([facility]) Proteinase 3 Ab [Units/volume] in Serum 7.8 g/dL 6.4-8.2 [facility] ([facility]) Alanine aminotransferase [Enzymatic activity/volume] in Seru m or Plasma 24 U/L 12-78 [facility] [facility] Glomerular filtration rate/1.73 sq M pre dicted among non-blacks [Volume Rate/Area] in Serum or Plasma by Creatinine-based formula (MDRD) 42 mL/min [facility] ([facility]) A/G Ratio 1.17 CALC 1.00-1.90 [facility] [facility] Glomerular filtration rate/1.73 sq M pre dicted among blacks [Volume Rate/Area] in Serum or Plasma by Creatinine-based formula (MDRD) 51 mL/min [facility] [facility] <content>CHRONIC KIDNEY DISEASE STAGING PER NKF</content>
<content></content>
<content>STAGE I & II GFR >= 60 NORMAL TO MILDLY DECREASED</content>
<content>STAGE III GFR 30-59 MODERATELY DECREASED</content>
<content>STAGE IV GFR 15-29 SEVERELY DECREASED</content>
<content>STAGE V GFR <15 VERY LITTLE GFR LEFT</content>
<content>ESRD GFR <15 ON GATHERING MACHINE SETTER</content>
<content></content> ID Date Data Source [id number] 12/18/2019 11:01:00 AM EDT [facility] ([facility]) Name Value Range Interpretation Code Description Data Bianca rce(s) Supporting Document(s) Erythrocytes [#/volume] in Blood by Automated count 4.94 x10*6/UL 4.2 0-6.30 [facility] ([facility]) Leukocytes [#/volume] in Blood by Automated count 8.0 x10*3/UL 4.1-10 .9 [facility] ([facility]) MCV 89.5 fL 80.0-97.0 [facility] ([place] [facility] Hemoglobin [Mass/volume] in Blood 15.1 g/dL 12.0-18.0 [facility] [facility] Hematocrit [Volume Fraction] of Blood by Automated count 44.2 % 3 7.0-51.0 [facility] [facility] MCHC 34.1 g/dL 31.0-38.0 [facility] ([place] [facility] Erythrocyte distribution width [Ratio] by Automated count 13.3 % 11.6-13.7 [facility] ([facility]) MCH 30.6 pg 26.0-32.0 [facility] ([place] [facility] MPV 10.2 FL 7.8-11.0 [facility] ([facility]) Platelets [#/volume] in Blood by Automated count 203 x10*3/UL 140-440 [facility] ([facility]) Lymph % 31.8 % 10.0-58.5 [facility] ([place] [facility] Lymph # 2.5 x10*3/UL 0.6-4.1 [facility] ([facility]) Mid % 7.1 % 1.7-9.3 [facility] ([place] [facility] Neut % 61.1 % 37.0-92.0 [facility] ([facility]) Neut # 4.9 x10*3/UL 2.0-7.8 [facility] ([facility]) Mid # 0.6 x10*3/UL 0.1-0.6 [facility] ([facility]) ID Date Data Source [id number] 08/09/2019 02:33:00 PM EDT [facility] ([facility]) Name Value Range Interpretation Code Description Data Bianca rce(s) Supporting Document(s) Urea nitrogen [Mass/volume] in Serum or Plasma 17 mg/dL 7-18 [facility] ([facility]) Glucose [Mass/volume] in Serum or Plasma 99 mg/dL 74-99 [facility] ([facility]) 100-125 mg/dL PRE-DIABETES/FASTING >126 mg/dL DIABETES/FASTING Creatinine 1.1 mg/dL 0.6-1.3 [facility] ([facility] Potassium [Moles/volume] in Serum or Plasma 3.9 meq/L 3.5-5.1 [facility] ([facility]) Sodium [Moles/volume] in Serum or Plasma 142 meq/L 136-145 [facility] ([facility]) Chloride [Moles/volume] in Serum or Plasma 104 meq/L 98-107 [facility] ([facility]) Carbon dioxide, total [Moles/volume] in Serum or Plasma 26 meq/L 21 -32 [facility] ([facility]) Glomerular filtration rate/1.73 sq M pre dicted among non-blacks [Volume Rate/Area] in Serum or Plasma by Creatinine-based formula (MDRD) 51 mL/min [facility] ([facility]) Calcium [Mass/volume] in Serum or Plasma 8.8 mg/dL 8.5-10.1 [facility] ([facility]) Glomerular filtration rate/1.73 sq M pre dicted among blacks [Volume Rate/Area] in Serum or Plasma by Creatinine-based formula (MDRD) Laboratory test result [facility] ([facility]) <content>CHRONIC KIDNEY DISEASE STAGING PER NKF</content>
<content></content>
<content>STAGE I & II GFR >= 60 NORMAL TO MILDLY DECREASED</content>
<content>STAGE III GFR 30-59 MODERATELY DECREASED</content>
<content>STAGE IV GFR 15-29 SEVERELY DECREASED</content>
<content>STAGE V GFR <15 VERY LITTLE GFR LEFT</content>
<content>ESRD GFR <15 ON GATHERING MACHINE SETTER</content>
<content></content> ID Date Data Source [id number] 08/03/2019 10:47:26 AM EDT [facility] INFORMATIONPatient MRN Name Date of Age Gend*PT [id number] Carmen Sal 1960 58 years F ---PT Location Admission Date/Time Visit ID Attending Provider --- --- --- --- EPI ID CSN Admitting Pro vider [id number] ---Cardiology History and PhysicalName: Carmen Sal Gender: femaleDate of : 1960 Age: 58 yearsPrimary Care Provider / Referring Physician: NANCY BUNCH, NPCardiology Telemedicine VisitPatient was identified by name and date of .Verbal consent was obtained from the patient for this telemedicine visit.Patient is aware of the risks, limitations, and benefits of a telemedicinevisit.This telemedicine assessment was conducted remotely with the assistance ofelectronConcur Japanommunication technology: Telephone and Interactive Video 11497 - 1+HPI, ROS,Low MDM or 15+ min mental health counselor Face to FaceCurrent HistoryChief Complaint: This [...] COLONOSCOPY CORONARY ANGIOPLASTY WITH STENT PLACEMENT 09/2014 [facility] cardiology Dr. Connolly and saw EP Dr. 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 A reasonable attempt at proofreading has been made to minimize errors.Please call with any questions or corrections. Name Value Range Interpretation Code Description Data Bianca rce(s) Supporting Document(s) ID Date Data Source [id number] 07/04/2019 02:15:00 PM EDT [facility] ([facility]) Name Value Range Interpretation Code Description Data Bianca rce(s) Supporting Document(s) Glucose [Mass/volume] in Serum or Plasma 99 mg/dL 74-99 [facility] ([facility]) 100-125 mg/dL PRE-DIABETES/FASTING >126 mg/dL DIABETES/FASTING Creatinine 1.1 mg/dL 0.6-1.3 [facility] ([facility] Urea nitrogen [Mass/volume] in Serum or Plasma 18 mg/dL 7-18 [facility] ([facility]) Sodium [Moles/volume] in Serum or Plasma 141 meq/L 136-145 [facility] ([facility]) Chloride [Moles/volume] in Serum or Plasma 103 meq/L 98-107 [facility] ([facility]) Potassium [Moles/volume] in Serum or Plasma 4.0 meq/L 3.5-5.1 [facility] ([facility]) Carbon dioxide, total [Moles/volume] in Serum or Plasma 27 meq/L 21 -32 [facility] ([facility]) Glomerular filtration rate/1.73 sq M pre dicted among non-blacks [Volume Rate/Area] in Serum or Plasma by Creatinine-based formula (MDRD) 51 mL/min [facility] ([facility]) Calcium [Mass/volume] in Serum or Plasma 9.5 mg/dL 8.5-10.1 [facility] ([facility]) Glomerular filtration rate/1.73 sq M pre dicted among blacks [Volume Rate/Area] in Serum or Plasma by Creatinine-based formula (MDRD) Laboratory test result [facility] <content>CHRONIC KIDNEY DISEASE STAGING PER NKF</content>
<content></content>
<content>STAGE I & II GFR >= 60 NORMAL TO MILDLY DECREASED</content>
<content>STAGE III GFR 30-59 MODERATELY DECREASED</content>
<content>STAGE IV GFR 15-29 SEVERELY DECREASED</content>
<content>STAGE V GFR <15 VERY LITTLE GFR LEFT</content>
<content>ESRD GFR <15 ON GATHERING MACHINE SETTER</content>
<content></content> ID Date Data Source [id number] 07/04/2019 02:15:00 PM EDT [facility] ([facility]) Name Value Range Interpretation Code Description Data Bianca rce(s) Supporting Document(s) Magnesium 1.9 mg/dL 1.8-2.4 [facility] ID Date Data Source [id number] 07/04/2019 02:15:00 PM EDT [facility] Name Value Range Interpretation Code Description Data Bianca rce(s) Supporting Document(s) Leukocytes [#/volume] in Blood by Automated count 7.7 x10*3/UL 4.1-10 .9 [facility] ([facility]) Erythrocytes [#/volume] in Blood by Automated count 4.71 x10*6/UL 4.2 0-6.30 [facility] ([facility]) Hematocrit [Volume Fraction] of Blood by Automated count 41.9 % 3 7.0-51.0 [facility] ([facility]) Hemoglobin [Mass/volume] in Blood 14.5 g/dL 12.0-18.0 [facility]) MCV 88.9 fL 80.0-97.0 [facility] MCH 30.8 pg 26.0-32.0 [facility]) Platelets [#/volume] in Blood by Automated count 227 x10*3/UL 140-440 [facility] ([facility]) MCHC 34.6 g/dL 31.0-38.0 [facility] Erythrocyte distribution width [Ratio] by Automated count 12.9 % 11.6-13.7 [facility] ([facility]) Lymph % 30.4 % 10.0-58.5 [facility] MPV 10.0 FL 7.8-11.0 [facility]) Neut % 62.8 % 37.0-92.0 [facility]) Mid % 6.8 % 1.7-9.3 [facility] Lymph # 2.3 x10*3/UL 0.6-4.1 [facility] ([facility]) Mid # 0.6 x10*3/UL 0.1-0.6 [facility] ([facility]) Neut # 4.8 x10*3/UL 2.0-7.8 [facility] ([facility]) ID Date Data Source [id number] 04/04/2019 01:23:00 [place] [address] Patient Name: Carmen Sal Exam Date: 04/04/19 [...] unremarkable. Professional interpretation performed at [facility] . End of diagnostic report: [id number] Signed: Andrew Og MD 04/04/19 [id number] Interpreted by: Emanuel Ogribed by: Andrew Og Name Value Range Interpretation Code Description Data Bianca rce(s) Supporting Document(s) Procedure Social History Code Duration Value Status Description Data Source(s ) Alcohol intake 02/11/2020 12:00:00 AM EST No completed [facility] Smoking 02/11/2020 12:00:00 AM EST Never smoker completed Never s moker [facility] Vital Signs ID Date Data Source UNK Name Value Range Interpretation Code Description Data Source(s) Body mass index (BMI) [Ratio] 29.29 kg/m2 29.29 kg/m2 [facility] Body weight 68.04 kg 68.04 kg [facility] Body mass index (BMI) [Ratio] 30.3 kg/m2 30.3 k g/m2 [facility] Oxygen saturation in Arterial blood by Pulse oximetry 98 % 98 % [facility] ([facility]) Body weight 155.00 [lb_av] 155.00 [lb_av] [facility] ([facility]) Body height 60 [in_i] 60 [in_i] [facility] 5'0" Heart rate 60 /min 60 /min [facility]) Diastolic blood pressure 80 mm[Hg] 80 mm[Hg] [facility] ([facility]) Systolic blood pressure 162 mm[Hg] 162 mm[Hg] [facility] ([facility]) Body mass index (BMI) [Ratio] 31.0 kg/m2 31.0 k g/m2 [facility] ([facility]) Oxygen saturation in Arterial blood by Pulse oximetry 96 % 96 % [facility] ([facility]) Body weight 159.00 [lb_av] 159.00 [lb_av] [facility] ([facility]) Body height 60 [in_i] 60 [in_i] [facility] ([facility]) 5'0" Heart rate 82 /min 82 /min [facility] ([facility]) Diastolic blood pressure 74 mm[Hg] 74 mm[Hg] [facility] ([facility]) Systolic blood pressure 122 mm[Hg] 122 mm[Hg] [facility] [place] ([facility]) Body mass index (BMI) [Ratio] 30.9 kg/m2 30.9 k g/m[facility] Body weight 158.00 [lb_av] 158.00 [lb_av] [facility] [place] ([facility]) Body height 60 [in_i] 60 [in_i] [facility] ([facility]) 5'0" Heart rate 77 /min 77 /min [facility] ([facility]) Diastolic blood pressure 70 mm[Hg] 70 mm[Hg] [facility] ([facility]) Systolic blood pressure 114 mm[Hg] 114 mm[Hg] [facility] ([facility]) Patient Treatment Plan of Care Planned Activity Planned Date Details Description Data Source (s) irbesartan 300 MG Oral Tablet 12/19/2019 12:00:00 AM EDT [facility] atorvastatin 40 MG Oral Tablet 08/06/2019 12:00:00 AM EDT [facility] 24 HR Propranolol Hydrochloride 60 MG Extended Release Oral Capsule 08/03/2019 12:00:00 AM EDT [facility] Hydrochlorothiazide 12.5 MG / valsartan 80 MG Oral Tablet [facility]
[2020-03-28 12:46] LABS: ALBUMIN 3.6 GM/DL (3.2-5.2); ALT/SGPT 24 U/L (12-78); BILIRUBIN,DIRECT < 0.1 MG/DL (0.0-0.2); BILIRUBIN,TOTAL 1.3 MG/DL (0.2-1.0); LIPASE 61 U/L (73-393); TOTAL PROTEIN 7.6 GM/DL (6.4-8.2)
--- NOTE | 2020-03-28 13:30 | REP ---
INDICATION: lower abd pain. COMPARISON: Comparison CT study September 17, 2011.. TECHNIQUE: Helical scanning was acquired and 4 mm axial images are re-formatted. Coronal and sagittal MPR images were generated and reviewed. The contrast enhancement dose is 100 mL of intravenous Isovue 370. FINDINGS: Preliminary digital it technical architect radiograph demonstrates air-filled loops of small bowel throughout the mid abdomen consistent with ileus. The lung bases are centrally clear. The liver and the spleen are normal in size homogeneous in texture on postcontrast images. The gallbladder is unremarkable. No abnormality is noted in the pancreas. Normal adrenal glands are observed bilaterally. There is a 4 mm intrarenal calculus in the upper pole collecting system of the left kidney. There are 2 additional lower pole calculi 1 of which measures 7 mm in greatest diameter. No hydronephrosis is seen on either side. There is a 3 mm calculus in the lower pole collecting system of the right kidney. No ureteral stone is seen. No bladder calculus is observed. A normal appendix is seen in the right lower quadrant. No uterine or ovarian abnormality is seen. There is mural thickening, pericolonic fat streaking and some cul-de-sac fluid associated with the sigmoid colon. There are at least 2 diverticuli in this inflamed segment of sigmoid colon and the changes are compatible with acute diverticulitis. No abscess or free air is seen. No bony destructive lesion. Study is otherwise unremarkable. IMPRESSION: Findings consistent with acute diverticulitis of the sigmoid colon. No abscess or free air seen. Also noted is bilateral intrarenal nephrolithiasis without hydronephrosis. Mild ileus pattern in the bowel gas. <Electronically signed by Librado Donald > 03/28/20 [id number]
[2020-03-28 14:05] LABS: CK-MB VALUE MASS < 1.0 NG/ML (<3.6); CPK CREATINE PHOSPHOKINASE 266 U/L (26-192); MB/CK RELATIVE INDEX 0.38 (< OR =4); TROPONIN I 0.03 NG/ML (< 0.10)
[2020-03-28 14:43] VITALS: BP 109/58
[2020-03-28] MEDS ORDERED: CIPR-249 PO (14:53)
[2020-03-28] MEDS ORDERED: FLAG500T PO (14:53)
[2020-03-28] MEDS ORDERED: ONDA4TAB6 PO (14:53)
--- NOTE | 2020-03-29 09:27 | ECGEPIP ---
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
== END 2020-03-28 15:18 | disposition home or self-care (01) ==
LOC: M ED 10:39
DX: K57.30 Diverticulosis of large intestine without perforation or abscess without bleeding (principal); N20.0 Calculus of kidney; I10 Essential (primary) hypertension; E78.5 Hyperlipidemia, unspecified; Z88.1 Allergy status to other antibiotic agents; Z88.2 Allergy status to sulfonamides; Z88.6 Allergy status to analgesic agent
CPT/HCPCS: 74177; 80047; 80076; 81001; 82550; 82553; 83690; 84484; 85025; 93005; 96361; 96374; 99284; J1885; J2405; Q9967

== ENCOUNTER → 2020-09-18 | Outpatient (REF) | payer BC ==
[~2020-09-18] MED LIST: ATOR40TA75; CALC600T57 PO; CHLO125TA; CIPR-249 PO; D31000TA2 PO; FLAG500T PO; IRBE300T7; ONDA4TAB6 PO; POTA4.25; PROL60SO; PROP60CA
== END ==
LOC: M LAB REF 11:20
PROVIDERS: ATTEND Nurse Practitioner Adult Health
DX: Z79.899 Other long term (current) drug therapy (principal)

== ENCOUNTER → 2021-05-15 | Outpatient (CLI) | payer BC ==
[~2021-05-15] MED LIST changes: -D31000TA2 PO; +VITA100093 PO
== END ==
LOC: M RAD 13:32
PROVIDERS: ATTEND Internal Medicine Nephrology
DX: N20.0 Calculus of kidney (principal)

== ENCOUNTER → 2021-08-14 | Outpatient (CLI) | payer BC | LOC: M WUC 15:14 | PROVIDERS: ATTEND Nurse Practitioner Adult Health | DX: Z51.81 Encounter for therapeutic drug level monitoring (principal); M25.579 Pain in unspecified ankle and joints of unspecified foot ==

== ENCOUNTER → 2021-12-03 | Outpatient (REF) | payer BC | LOC: M LAB REF 16:22 | PROVIDERS: ATTEND Nurse Practitioner Adult Health | DX: N18.31 Chronic kidney disease, stage 3a (principal) ==

== ENCOUNTER → 2022-07-15 | Outpatient (REF) | payer BC ==
[2022-07-15 17:15] LABS: URIC ACID 6.7 MG/DL (3.1-7.8)
== END ==
LOC: M LAB REF 16:27
PROVIDERS: ATTEND Nurse Practitioner Adult Health
DX: N18.1 Chronic kidney disease, stage 1 (principal); Z79.899 Other long term (current) drug therapy

== ENCOUNTER → 2023-07-11 | Outpatient (REF) | payer BC ==
[~2023-07-11] MED LIST changes: +IRBE300T25; -IRBE300T7
== END ==
LOC: M LAB REF 11:58
PROVIDERS: ATTEND Nurse Practitioner Family
DX: M81.0 Age-related osteoporosis without current pathological fracture (principal); Z79.899 Other long term (current) drug therapy

== ENCOUNTER → 2023-07-28 | Outpatient (REF) | payer BC | LOC: M LAB REF 12:40 | PROVIDERS: ATTEND Nurse Practitioner Family | DX: Z79.899 Other long term (current) drug therapy (principal) ==

== ENCOUNTER → 2024-05-23 | Outpatient (REF) | payer BC ==
[~2024-05-23] MED LIST changes: +DENO60SY2; +ONDA-282 PO; -ONDA4TAB6 PO; -PROL60SO
== END ==
LOC: M LAB REF 15:09
PROVIDERS: ATTEND Nurse Practitioner Family
DX: Z79.899 Other long term (current) drug therapy (principal)

== ENCOUNTER → 2024-11-26 | Outpatient (REF) | payer BC | LOC: M LAB REF 17:23 | PROVIDERS: ATTEND Nurse Practitioner Family | DX: M81.0 Age-related osteoporosis without current pathological fracture (principal); Z79.899 Other long term (current) drug therapy ==